=== PATIENT | male | born 1930 | race Caucasian/White ===

== ENCOUNTER 2016-06-19 14:32 | Emergency (ER) | payer MEDICARE, OTHER ==
[~2016-06-19] VITALS: Ht 180.3 cm; Wt 77.0 kg
[~2016-06-19 14:32] MED LIST: CALC-189 PO; COUM5TAB PO; DILT360C12 PO; FISH300C2 PO; FURO20 PO; METO50CR PO; POTA-267 PO
[2016-06-19 14:35] VITALS: BP 108/65; PULSE 68; RESP 18; TEMP 97.7; O2SAT 94
[2016-06-19] MEDS ORDERED: METO50TA11 PO (14:56)
[2016-06-19] MEDS ORDERED: POTA-243 PO (14:56)
[2016-06-19] MEDS ORDERED: FURO20TA PO (14:56)
[2016-06-19] MEDS ORDERED: DILT180C56 PO (14:56)
[2016-06-19] MEDS ORDERED: WARF-23 PO (14:56)
--- NOTE | 2016-06-19 15:24 | PD ---
HPI Chief Complaint: Laceration/Skin Injury Time Seen by Provider: 15:23 Travel History International Travel<30 days: No Contact w/Intl Traveler<30days: No Traveled to known affect area: No History of Present Illness HPI 86-year-old male presents to the ED via EMS for evaluation of skin tear following trip and fall. PFSH Past Medical History Hx Anticoagulant Therapy: Yes (WARFARIN) Arthritis: Yes (TOES) Atrial Fibrillation: Yes Autoimmune Disease: No Heart Rhythm Problems: Yes (A-FIB) Cancer: Yes (SKIN CANCER REMOVED ) Cardiovascular Problems: Yes (CHF) High Cholesterol: No Chemotherapy: No Chest Pain: No Congestive Heart Failure: No Cerebrovascular Accident: No Diminished Hearing: Yes ([place]) Endocrine: No Genitourinary: No Hypertension: Yes Immune Disorder: No Musculoskeletal: Yes Neurologic: Yes Psychiatric: No Reproductive: No Respiratory: No Migraines: No Radiation Therapy: No Seizures: No Tetanus Vaccination: < 5 Years Influenza Vaccination: Yes Past Surgical History Abdominal Surgery: Yes (HERNIA REPAIR) Cardiac Surgery: No Ear Surgery: No Endocrine Surgery: No Eye Surgery: No Genitourinary Surgery: Yes (PROSTATE SURGERY ) Gynecologic Surgery: No Oral Surgery: No Thoracic Surgery: No Other Surgery: Yes Social History Alcohol Use: No Tobacco Use: No Substance Use: No Allergies-Medications (Allergen,Severity, Reaction): Coded Allergies: No Known Allergies (Unverified , 06/19/16) Reported Meds & Prescriptions Reported Meds & Active Scripts Active Reported Furosemide 20 Mg Tab 20 Mg PO DAILY Metoprolol Succinate ER 24 HR (Metoprolol Succinate) 50 Mg Tab 50 Mg PO DAILY Diltiazem CD 24 HR 180 Mg Caper 180 Mg PO DAILY Klor-Con 10 (Potassium Chloride) 10 Meq Tab 10 Meq PO DAILY Warfarin 5 Mg Tab 5 Mg PO DAILY Data Data Last Documented VS Vital Signs Date Time Temp Pulse Resp B/P Pulse Ox O2 Delivery O2 Flow Rate FiO2 06/19/16 14:35 97.7 68 18 108/65 94 Adry Sauceda Jun 19, 2016 15:24
[2016-06-19 15:38] VITALS: BP 123/84; PULSE 81; RESP 18; O2SAT 94
--- NOTE | 2016-06-19 15:55 | PD ---
HPI Chief Complaint: Laceration/Skin Injury Time Seen by Provider: 15:52 Travel History International Travel<30 days: No Contact w/Intl Traveler<30days: No Traveled to known affect area: No History of Present Illness HPI 86-year-old male presents to the ED via EMS after trip and fall. PFSH Past Medical History Hx Anticoagulant Therapy: Yes (WARFARIN) Arthritis: Yes (TOES) Atrial Fibrillation: Yes Autoimmune Disease: No Heart Rhythm Problems: Yes (A-FIB) Cancer: Yes (SKIN CANCER REMOVED ) Cardiovascular Problems: Yes (CHF) High Cholesterol: No Chemotherapy: No Chest Pain: No Congestive Heart Failure: No Cerebrovascular Accident: No Diminished Hearing: Yes [place]) Endocrine: No Genitourinary: No Hypertension: Yes Immune Disorder: No Musculoskeletal: Yes Neurologic: Yes Psychiatric: No Reproductive: No Respiratory: No Migraines: No Radiation Therapy: No Seizures: No Tetanus Vaccination: < 5 Years Influenza Vaccination: Yes Past Surgical History Abdominal Surgery: Yes (HERNIA REPAIR) Cardiac Surgery: No Ear Surgery: No Endocrine Surgery: No Eye Surgery: No Genitourinary Surgery: Yes (PROSTATE SURGERY ) Gynecologic Surgery: No Oral Surgery: No Thoracic Surgery: No Other Surgery: Yes Social History Alcohol Use: No Tobacco Use: No Substance Use: No Allergies-Medications (Allergen,Severity, Reaction): Coded Allergies: No Known Allergies (Unverified , 06/19/16) Reported Meds & Prescriptions Reported Meds & Active Scripts Active Reported Furosemide 20 Mg Tab 20 Mg PO DAILY Metoprolol Succinate ER 24 HR (Metoprolol Succinate) 50 Mg Tab 50 Mg PO DAILY Diltiazem CD 24 HR 180 Mg Caper 180 Mg PO DAILY Klor-Con 10 (Potassium Chloride) 10 Meq Tab 10 Meq PO DAILY Warfarin 5 Mg Tab 5 Mg PO DAILY Review of Systems Except as stated in HPI: all other systems reviewed are Neg (UNABLE TO OBTAIN) Physical Exam Narrative UNABLE TO OBTAIN Data Data Last Documented VS Vital Signs Date Time Temp Pulse Resp B/P Pulse Ox O2 Delivery O2 Flow Rate FiO2 06/19/16 15:38 81 18 123/84 94 Room Air 06/19/16 14:35 97.7 MDM Medical Decision Making Medical Screen Exam Complete: No Emergency Medical Condition: Yes Differential Diagnosis skin tear versus closed head injury versus musculoskeletal pain versus fracture versus laceration versus other Narrative Course 86-year-old male presents to ED via EMS for evaluation following trip and fall. Upon arrival in the room, the patient had left AGAINST MEDICAL ADVICE. Diagnosis Primary Impression: AMA Patient Instructions: General Instructions Departure Forms: Tests/Procedures Disposition: 07 AGAINST MEDICAL ADVICE Adry Sauceda Jun 19, 2016 15:55
== END 2016-06-19 16:22 | disposition left against medical advice (07) ==
LOC: PHEFT 14:32
DX: T14.8 Other injury of unspecified body region (principal); I48.91 Unspecified atrial fibrillation; I50.9 Heart failure, unspecified; I10 Essential (primary) hypertension; W01.0XXA Fall on same level from slipping, tripping and stumbling without subsequent striking against object, initial encounter; Z53.21 Procedure and treatment not carried out due to patient leaving prior to being seen by health care provider
CPT/HCPCS: 99282

== ENCOUNTER 2016-07-14 15:22 | Inpatient (IN) | payer OTHER, MEDICARE ==
[~2016-07-14] VITALS: Ht 180.3 cm; Wt 76.4 kg
[2016-07-14] VITALS (12 sets, daily range): BP systolic 103–122; BP diastolic 59–79; PULSE 77–120; RESP 18–30; TEMP 98; O2SAT 85–99
[~2016-07-14 15:22] MED LIST changes: -CALC-189 PO; -COUM5TAB PO; +DILT180C56 PO; -DILT360C12 PO; -FISH300C2 PO; -FURO20 PO; +FURO20TA PO; -METO50CR PO; +METO50TA11 PO; +POTA-243 PO; -POTA-267 PO; +WARF-23 PO
--- NOTE | 2016-07-14 15:37 | PD ---
HPI Chief Complaint: GI Complaint Time Seen by Provider: 15:37 Travel History International Travel<30 days: No Contact w/Intl Traveler<30days: No Traveled to known affect area: No History of Present Illness HPI 86-year-old male with history of hypertension, A. fib on Coumadin, CHF, ascites , presents to the emergency department for evaluation of increased generalized weakness, fatigue, and worsening shortness of breath. 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 He is typically able to handle activities of daily living without difficulty but he has been unable to over the last week. Patient denies any pain. States he is short of breath. [facility] was called today because he was unable to get to the restroom and had a loose bowel movement on himself. When [facility] arrived, patient's oxygen saturation was 80%. They put him on 15 L nasal cannula and this increased to 92 %. Here in the emergency department initially oxygen saturation is 83% on 4 L nasal cannula. He has been having more frequent falls and came to the emergency department earlier this month but left prior to disposition. Patient' s children do not live locally but his daughter informs me that he has had a large ascitic abdomen since January 2016. Patient's primary care provider is aware. His daughter is also concerned because he has been on high-dose Lasix and has been having a productive cough as of late and she thinks he may have pneumonia and is dehydrated. Patient denies any recent illnesses, fever, or chills. He has no other symptoms to report. PFSH Past Medical History Hx Anticoagulant Therapy: Yes (WARFARIN) Arthritis: Yes (TOES) Atrial Fibrillation: Yes Autoimmune Disease: No Heart Rhythm Problems: Yes (A-FIB) Cancer: Yes (SKIN CANCER REMOVED ) Cardiovascular Problems: Yes (CHF) High Cholesterol: No Chemotherapy: No Chest Pain: No Congestive Heart Failure: No Cerebrovascular Accident: No Diminished Hearing: Yes ([place]) Endocrine: No Genitourinary: No Hypertension: Yes Immune Disorder: No Musculoskeletal: Yes Neurologic: Yes Psychiatric: No Reproductive: No Respiratory: No Migraines: No Radiation Therapy: No Seizures: No Past Surgical History Abdominal Surgery: Yes (HERNIA REPAIR) Cardiac Surgery: No Ear Surgery: No Endocrine Surgery: No Eye Surgery: No Genitourinary Surgery: Yes (PROSTATE SURGERY ) Gynecologic Surgery: No Oral Surgery: No Thoracic Surgery: No Other Surgery: Yes Social History Alcohol Use: No Tobacco Use: No Substance Use: No Allergies-Medications (Allergen,Severity, Reaction): Coded Allergies: No Known Allergies (Unverified , 07/14/16) Reported Meds & Prescriptions Reported Meds & Active Scripts Active Reported Metolazone 2.5 Mg Tab 2.5 PO DAILY Lasix (Furosemide) 40 Mg Tab 40 Mg .ROUTE DAILY Metoprolol Succinate ER 24 HR (Metoprolol Succinate) 50 Mg Tab 50 Mg PO DAILY Diltiazem CD 24 HR 180 Mg Caper 180 Mg PO DAILY Warfarin 5 Mg Tab 5 Mg PO DAILY Review of Systems ROS Limitations: Altered Mental Status, Poor Historian Except as stated in HPI: all other systems reviewed are Neg Physical Exam Exam Limitations: Altered Mental Status Narrative GENERAL: Chronically male patient, sitting in bed, in mild distress SKIN: Focused skin assessment warm/dry. HEAD: Atraumatic. Normocephalic. EYES: Pupils equal and round. No scleral icterus. No injection or drainage. ENT: No nasal bleeding or discharge. Mucous membranes pink and moist. NECK: Trachea midline. No JVD. CARDIOVASCULAR: Regular rate and rhythm. No murmur appreciated. RESPIRATORY: Mild accessory muscle use. Diminished, shallow inspirations. Breath sounds equal bilaterally. GASTROINTESTINAL: Abdomen soft, nontender. Rotund, ascitic abdomen hepatic and splenic margins not palpable. MUSCULOSKELETAL: No obvious deformities. No clubbing. No cyanosis. 2+ bilateral lower extremity edema NEUROLOGICAL: Awake and alert. No obvious cranial nerve deficits. Motor grossly within normal limits. Normal speech. PSYCHIATRIC: Appropriate mood and affect; insight and judgment normal. Data Data Last Documented VS Vital Signs Date Time Temp Pulse Resp B/P Pulse Ox O2 Delivery O2 Flow Rate FiO2 07/14/16 16:42 96 BiPAP 07/14/16 16:39 91 28 103/61 07/14/16 16:10 100 07/14/16 15:29 98.0 Orders Electrocardiogram (07/14/16 15:35) Complete Blood Count With Diff (07/14/16 15:35) Comprehensive Metabolic Panel (07/14/16 15:35) Lactic Acid Sepsis Protocol (07/14/16 15:35) Ckmb (Isoenzyme) Profile (07/14/16 15:35) Troponin I (07/14/16 15:35) Urinalysis - C+S If Indicated (07/14/16 15:35) Influenzae A/B Antigen (07/14/16 15:35) Blood Culture (07/14/16 15:35) Chest, Single Ap (07/14/16 15:35) Arterial Blood Gas (Abg) (07/14/16 15:35) Blood Glucose (07/14/16 15:35) Ecg Monitoring (07/14/16 15:35) Iv Access Insert/Monitor (07/14/16 15:35) Oximetry (07/14/16 15:35) Oxygen Administration (07/14/16 15:35) Abdomen, Upright Only (07/14/16 ) C Diff Toxin Pcr (07/14/16 15:37) Resp Bipap / Cpap Non Invas Vt (07/14/16 ) CKMB (07/14/16 15:40) CKMB% (07/14/16 15:40) Furosemide Inj (Lasix Inj) (07/14/16 17:30) Urinary Catheter Management WALTER.Q8H (07/14/16 17:30) Admit Order (Ed Use Only) (07/14/16 17:33) Labs Laboratory Tests Test 07/14/16 07/14/16 07/14/16 15:40 15:43 16:30 White Blood Count 5.8 TH/MM3 Red Blood Count 3.58 MIL/MM3 Hemoglobin 11.2 GM/DL Hematocrit 34.0 % Mean Corpuscular Volume 95.0 FL Mean Corpuscular Hemoglobin 31.2 PG Mean Corpuscular Hemoglobin 32.8 % Concent Red Cell Distribution Width 15.2 % Platelet Count 295 TH/MM3 Mean Platelet Volume 8.2 FL Neutrophils (%) (Auto) 60.2 % Lymphocytes (%) (Auto) 17.7 % Monocytes (%) (Auto) 21.9 % Eosinophils (%) (Auto) 0.0 % Basophils (%) (Auto) 0.2 % Neutrophils # (Auto) 3.5 TH/MM3 Lymphocytes # (Auto) 1.0 TH/MM3 Monocytes # (Auto) 1.3 TH/MM3 Eosinophils # (Auto) 0.0 TH/MM3 Basophils # (Auto) 0.0 TH/MM3 CBC Comment DIFF FINAL Differential Comment Sodium Level 140 MEQ/L Potassium Level 4.8 MEQ/L Chloride Level 97 MEQ/L Carbon Dioxide Level 36.1 MEQ/L Anion Gap 7 MEQ/L Blood Urea Nitrogen 80 MG/DL Creatinine 1.69 MG/DL Estimat Glomerular Filtration 39 ML/MIN Rate Random Glucose 137 MG/DL Lactic Acid Level 1.5 mmol/L Calcium Level 9.0 MG/DL Total Bilirubin 0.6 MG/DL Aspartate Amino Transf 38 U/L (AST/SGOT) Alanine Aminotransferase 19 U/L (ALT/SGPT) Alkaline Phosphatase 73 U/L Total Creatine Kinase 111 U/L Creatine Kinase MB 4.4 NG/ML Troponin I 0.04 NG/ML Total Protein 7.0 GM/DL Albumin 3.0 GM/DL Blood Gas Puncture Site RT RADIAL Blood Gas Patient Temperature 98.6 Blood Gas HCO3 35 mmol/L Blood Gas Base Excess 7.1 mmol/L Blood Gas Oxygen Saturation 92 % Arterial Blood pH 7.21 Arterial Blood Partial 90 mmHg Pressure CO2 Arterial Blood Partial 87 mmHG Pressure O2 Arterial Blood Oxygen Content 14.5 Vol % Arterial Blood 1.6 % Carboxyhemoglobin Arterial Blood Methemoglobin 0.5 % Blood Gas Hemoglobin 11.2 G/DL Oxygen Delivery Device NRB MASK Blood Gas Liter Flow 15 L/M Blood Gas Inspired Oxygen 100 % Urine Color YELLOW Urine Turbidity HAZY Urine pH 5.0 Urine Specific [place] 1.017 Urine Protein 30 mg/dL Urine Glucose (UA) NEG mg/dL Urine Ketones NEG mg/dL Urine Occult Blood NEG Urine Nitrite NEG Urine Bilirubin NEG Urine Urobilinogen LESS THAN 2.0 MG/DL Urine Leukocyte Esterase NEG Urine RBC 1 /hpf Urine WBC 1 /hpf Urine Squamous Epithelial <1 /hpf Cells Urine Hyaline Casts 16 /lpf Urine Mucus FEW /lpf Microscopic Urinalysis Comment CULT NOT INDICATED MDM Medical Decision Making Medical Screen Exam Complete: Yes Emergency Medical Condition: Yes Medical Record Reviewed: Yes Differential Diagnosis Sepsis versus CHF exacerbation versus obstruction versus perforation versus electrolyte abnormality Narrative Course 86-year-old male presents to emergency department for evaluation of generalized fatigue and hypoxia. Patient's ABG here in the emergency department is with pH of 7.21 and PCO2 of 9D. Base excess is 15 with a bicarbonate of 35. Placed on BiPAP. CBC is without leukocytosis. CMP is with BUN of 80, creatinine 1.69, GFR 39, troponin I 0.04. Lactic acid is 1.5. Urinalysis is hazy with 30 protein area, few mucus, culture not indicated. Chest x-ray shows moderate cardiomegaly. Upright abdomen shows no definite free air. I discussed the patient with my attending physician Dr. Germain who agrees the patient should be admitted to intensive care unit. I discussed the patient with Dr. Hardin. Patient will be admitted to the [facility] press service reader service. Diagnosis Primary Impression: Altered mental status Qualified Code: R41.82 - Altered mental status, unspecified altered mental status type Additional Impressions: Acidosis Hypoxia Uremia OLU (acute kidney injury) Admitting Information Admitting Physician Requests: Admit Condition: Stable Natalie Thomas Jul 14, 2016 15:37
[2016-07-14] MEDS ORDERED: FURO1TAB60 (15:40)
[2016-07-14] MEDS ORDERED: METO2.5T PO (15:41)
[2016-07-14 15:56] LABS: AUTOMATED NEUTROPHIL # 3.5 TH/MM3 (1.8-7.7); BASOPHIL % 0.2 % (0.0-2.0); HEMO FLAGS DIFF FINAL; LYMPH % 17.7 % (9.0-44.0); MEAN CORPUSCULAR HEMOGLOBIN 31.2 PG (27.0-34.0); MEAN CORPUSCULAR HGB CONC 32.8 % (32.0-36.0); MONO % 21.9 % (0.0-8.0); NEUT % 60.2 % (16.0-70.0); PLATELET COUNT 295 TH/MM3 (150-450); RED BLOOD COUNT 3.58 MIL/MM3 (4.50-5.90); RED CELL DISTRIBUTION WIDTH 15.2 % (11.6-17.2); WHITE BLOOD COUNT 5.8 TH/MM3 (4.0-11.0)
[2016-07-14 15:59] LABS: BLOOD GAS BASE EXCESS 7.1 mmol/L (-2-2); BLOOD GAS CARBOXYHEMOGLOBIN 1.6 % (0-4); BLOOD GAS HCO3 35 mmol/L (22-26); BLOOD GAS METHEMOGLOBIN 0.5 % (0-2); BLOOD GAS O2 HGB SATURATION 92 % (90-100); BLOOD GAS OXYGEN CONTENT 14.5 Vol % (12.0-20.0); BLOOD GAS PCO2 90 mmHg (38-42); BLOOD GAS PO2 87 mmHG (61-120); BLOOD GAS TOTAL HGB 11.2 G/DL (12.0-16.0); TEMP CORR TO 98.6
[2016-07-14 16:00] LABS: CRITICAL VALUE YES; OXYGEN DEVICE NRB MASK
[2016-07-14 16:01] LABS: DRAW SITE RT RADIAL; FIO2 100 %; LITER FLOW 15 L/M; NUMBER OF ARTERIAL PUNCTURES 1; STAT YES; ULNAR PULSE PRESENT
--- NOTE | 2016-07-14 16:13 | RADRPT ---
EXAM DATE/TIME: 07/14/2016 15:40 [facility] COMPARISON: CHEST SINGLE AP, October 11, 2011, 0:17. INDICATIONS : Shortness of breath. MEDICAL HISTORY : None. SURGICAL HISTORY : None. ENCOUNTER: Initial ACUITY: 1 day PAIN SCORE: Non-responsive. LOCATION: Bilateral chest FINDINGS: Moderate cardiomegaly seen. Lungs are clear. There are atherosclerotic calcifications of the aorta du e to chronic atherosclerotic disease. CONCLUSION: Moderate cardiomegaly. Rafa Allen MD on July 14, 2016 at 16:10 Board Certified Radiologist. This report was verified electronically.
--- NOTE | 2016-07-14 16:13 | RADRPT ---
EXAM DATE/TIME: 07/14/2016 15:42 [facility] COMPARISON: No previous studies available for comparison. INDICATIONS : Evaluate for free air. MEDICAL HISTORY : None. SURGICAL HISTORY : None. ENCOUNTER: Initial ACUITY: 1 day PAIN SCORE: Non-responsive. LOCATION: Bilateral abdomen. FINDINGS: Moderate cardiomegaly seen. No definite free air is identified for technique. CONCLUSION: No definite free air is identified for technique. Rafa Allen MD on July 14, 2016 at 16:11 Board Certified Radiologist. This report was verified electronically.
[2016-07-14 16:37] LABS: ALT (GPT) 19 U/L (12-78); ANION GAP 7 MEQ/L (5-15); AST (GOT) 38 U/L (15-37); BICARBONATE 36.1 MEQ/L (21.0-32.0); BLOOD UREA NITROGEN 80 MG/DL (7-18); CHLORIDE 97 MEQ/L (98-107); GLOMERULAR FILTRATION RATE 39 ML/MIN (>89); POTASSIUM 4.8 MEQ/L (3.5-5.1); SODIUM (NA) 140 MEQ/L (136-145)
--- NOTE | 2016-07-14 16:37 | PD ---
Data Data Last Documented VS Vital Signs Date Time Temp Pulse Resp B/P Pulse Ox O2 Delivery O2 Flow Rate FiO2 07/14/16 16:42 96 BiPAP 07/14/16 16:39 91 28 103/61 07/14/16 16:10 100 07/14/16 15:29 98.0 Orders Electrocardiogram (07/14/16 15:35) Complete Blood Count With Diff (07/14/16 15:35) Comprehensive Metabolic Panel (07/14/16 15:35) Lactic Acid Sepsis Protocol (07/14/16 15:35) Ckmb (Isoenzyme) Profile (07/14/16 15:35) Troponin I (07/14/16 15:35) Urinalysis - C+S If Indicated (07/14/16 15:35) Influenzae A/B Antigen (07/14/16 15:35) Blood Culture (07/14/16 15:35) Chest, Single Ap (07/14/16 15:35) Arterial Blood Gas (Abg) (07/14/16 15:35) Blood Glucose (07/14/16 15:35) Ecg Monitoring (07/14/16 15:35) Iv Access Insert/Monitor (07/14/16 15:35) Oximetry (07/14/16 15:35) Oxygen Administration (07/14/16 15:35) Abdomen, Upright Only (07/14/16 ) C Diff Toxin Pcr (07/14/16 15:37) Resp Bipap / Cpap Non Invas Vt (07/14/16 ) CKMB (07/14/16 15:40) CKMB% (07/14/16 15:40) Furosemide Inj (Lasix Inj) (07/14/16 17:30) Urinary Catheter Management WALTER.Q8H (07/14/16 17:30) Admit Order (Ed Use Only) (07/14/16 17:33) Labs Laboratory Tests Test 07/14/16 07/14/16 07/14/16 15:40 15:43 16:30 White Blood Count 5.8 TH/MM3 Red Blood Count 3.58 MIL/MM3 Hemoglobin 11.2 GM/DL Hematocrit 34.0 % Mean Corpuscular Volume 95.0 FL Mean Corpuscular Hemoglobin 31.2 PG Mean Corpuscular Hemoglobin 32.8 % Concent Red Cell Distribution Width 15.2 % Platelet Count 295 TH/MM3 Mean Platelet Volume 8.2 FL Neutrophils (%) (Auto) 60.2 % Lymphocytes (%) (Auto) 17.7 % Monocytes (%) (Auto) 21.9 % Eosinophils (%) (Auto) 0.0 % Basophils (%) (Auto) 0.2 % Neutrophils # (Auto) 3.5 TH/MM3 Lymphocytes # (Auto) 1.0 TH/MM3 Monocytes # (Auto) 1.3 TH/MM3 Eosinophils # (Auto) 0.0 TH/MM3 Basophils # (Auto) 0.0 TH/MM3 CBC Comment DIFF FINAL Differential Comment Sodium Level 140 MEQ/L Potassium Level 4.8 MEQ/L Chloride Level 97 MEQ/L Carbon Dioxide Level 36.1 MEQ/L Anion Gap 7 MEQ/L Blood Urea Nitrogen 80 MG/DL Creatinine 1.69 MG/DL Estimat Glomerular Filtration 39 ML/MIN Rate Random Glucose 137 MG/DL Lactic Acid Level 1.5 mmol/L Calcium Level 9.0 MG/DL Total Bilirubin 0.6 MG/DL Aspartate Amino Transf 38 U/L (AST/SGOT) Alanine Aminotransferase 19 U/L (ALT/SGPT) Alkaline Phosphatase 73 U/L Total Creatine Kinase 111 U/L Creatine Kinase MB 4.4 NG/ML Troponin I 0.04 NG/ML Total Protein 7.0 GM/DL Albumin 3.0 GM/DL Blood Gas Puncture Site RT RADIAL Blood Gas Patient Temperature 98.6 Blood Gas HCO3 35 mmol/L Blood Gas Base Excess 7.1 mmol/L Blood Gas Oxygen Saturation 92 % Arterial Blood pH 7.21 Arterial Blood Partial 90 mmHg Pressure CO2 Arterial Blood Partial 87 mmHG Pressure O2 Arterial Blood Oxygen Content 14.5 Vol % Arterial Blood 1.6 % Carboxyhemoglobin Arterial Blood Methemoglobin 0.5 % Blood Gas Hemoglobin 11.2 G/DL Oxygen Delivery Device NRB MASK Blood Gas Liter Flow 15 L/M Blood Gas Inspired Oxygen 100 % Urine Color YELLOW Urine Turbidity HAZY Urine pH 5.0 Urine Specific [place] 1.017 Urine Protein 30 mg/dL Urine Glucose (UA) NEG mg/dL Urine Ketones NEG mg/dL Urine Occult Blood NEG Urine Nitrite NEG Urine Bilirubin NEG Urine Urobilinogen LESS THAN 2.0 MG/DL Urine Leukocyte Esterase NEG Urine RBC 1 /hpf Urine WBC 1 /hpf Urine Squamous Epithelial <1 /hpf Cells Urine Hyaline Casts 16 /lpf Urine Mucus FEW /lpf Microscopic Urinalysis Comment CULT NOT INDICATED MDM Supervised Visit with [facility]: Yes Narrative Course I, Dr. Germain, have reviewed the advance practice practitioner's documentation and am in agreement, met with the patient face to face, made the diagnosis, and the medical decision making was done by me. *My assessment and Findings: Patient fairly short of breath on arrival with sats in the mid 80s, he did respond well to nonrebreather however is hypercapnic. He was started on BiPAP by BRIONNA. Chest x-ray does show cardiomegaly. Patient also does have anasarca from the lower extremities up to mid abdomen. No true pulmonary edema seen on chest x-ray. Patient also has an acute kidney injury with uremia and respiratory acidosis with some compensation. He was given Lasix and a Bernal catheter was started. He was discussed with Dr. Hardin by myself and Natalie Thomas AIRCONDITIONING DRAFTING OFFICER for admission to the ICU. Patient is tolerating the BiPAP and appears to be protecting his airway currently. Diagnosis Primary Impression: Acidosis Additional Impressions: OLU (acute kidney injury) Altered mental status Qualified Code: R41.82 - Altered mental status, unspecified altered mental status type Hypoxia Uremia Hypercapnic respiratory failure Admitting Information Admitting Physician Requests: Admit Condition: Fair Clifford Germain MD Jul 14, 2016 16:37
[2016-07-14 16:40] LABS: ALKALINE PHOSPHATASE 73 U/L (45-117); CREATINE KINASE 111 U/L (39-308); TOTAL BILIRUBIN ADULT 0.6 MG/DL (0.2-1.0)
[2016-07-14 16:58] LABS: CKMB 4.4 NG/ML (0.5-3.6)
[2016-07-14 17:00] LABS: BLOOD, URINE NEG (NEG); COMMENT (UR) CULT NOT INDICATED; CULTURE IF INDICATED CULT NOT INDICATED; GLUCOSE,URINE NEG (NEG); HYALINE CAST, URINE 16 /lpf (RARE); KETONE, URINE NEG (NEG); MUCUS URINE FEW /lpf (OCC); NITRITE,URINE NEG (NEG); SQUAMOUS EPITHELIAL CELL URINE <1 /hpf (0-5); URINE COLOR YELLOW (YELLW/STRAW)
[2016-07-14] MEDS ORDERED: FUROSEMIDE 40 MG/4 ML VIAL IV PUSH ONE (17:30)
[2016-07-14 20:09] LABS: BLOOD GAS BASE EXCESS 6.3 mmol/L (-2-2); BLOOD GAS CARBOXYHEMOGLOBIN 1.2 % (0-4); BLOOD GAS HCO3 34 mmol/L (22-26); BLOOD GAS METHEMOGLOBIN 0.1 % (0-2); BLOOD GAS O2 HGB SATURATION 95 % (90-100); BLOOD GAS OXYGEN CONTENT 15.7 Vol % (12.0-20.0); BLOOD GAS PCO2 90 mmHg (38-42); BLOOD GAS PO2 96 mmHG (61-120); BLOOD GAS TOTAL HGB 11.7 G/DL (12.0-16.0); TEMP CORR TO 98.6
[2016-07-14 20:10] LABS: CRITICAL VALUE YES; DRAW SITE RT FEMORAL; FIO2 75 %; NUMBER OF ARTERIAL PUNCTURES 1; OXYGEN DEVICE BIPAP; STAT YES; VENT SETTINGS IPAP=15 EPAP=8 R=18
[2016-07-15] VITALS (18 sets, daily range): BP systolic 92–124; BP diastolic 53–70; PULSE 89–149; RESP 20–32; TEMP 98–98.6; O2SAT 88–97
[2016-07-15] MEDS: CHLORHEXIDINE GLUCONATE 2 % 1 PACK (2 CLOTHS) TOP SCH
[2016-07-15] MEDS ORDERED: RESP: ALBUTEROL 2.5 MG/IPRATROPIUM 0.5 MG NEB (PRN) INH (01:00)
[2016-07-15] MEDS ORDERED: SENNOSIDES 8.6 MG TAB PO PRN (01:00)
[2016-07-15] MEDS ORDERED: MISCELLANEOUS NURSING INFORMATION XX SCH (01:00)
[2016-07-15] MEDS ORDERED: CHLORHEXIDINE GLUCONATE 2 % 1 PACK (2 CLOTHS) TOP PRN (01:00)
[2016-07-15] MEDS ORDERED: HEPARIN SODIUM - SQ 10,000 UNITS/ML VIAL SQ SCH (01:00)
[2016-07-15] MEDS ORDERED: ONDANSETRON HCL 4 MG/2 ML VIAL IV PRN (01:00)
[2016-07-15] MEDS ORDERED: ACETAMINOPHEN 325 MG TAB PO PRN (01:00)
--- NOTE | 2016-07-15 01:05 | HHI.HP ---
[facility] Service Date of H&P 07/14/2016 Critical Care Medicine Primary Care Physician Nithin Mckeon MD Admission Diagnosis AMS; HYPOXIA; HYPERCARBIA; OLU; UREMIA; ACIDOSIS Diagnosis: Chief Complaint: Respiratory Distress Travel History International Travel<30 Days: No Contact w/Intl Traveler <30 Da: No Traveled to Known Affected Are: No History of Present Illness Patient presents to ED with gradual worsening of exercise tolerance and frequent falls. Brought in by EMS after he got confused, soiled himself, and appeared disoriented. Sats low 80s at scene and in ED. Placed on BiPAOP in ED with improvement. Chronic COPD with elevated bicarb 34. 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 He is chronically on lasix and metolazone. Permanent A-fib and coumadin. Past Family Social History Allergies: Coded Allergies: No Known Allergies (Unverified , 07/14/16) Physical Exam Vital Signs Vital Signs Date Time Temp Pulse Resp B/P Pulse Ox O2 Delivery O2 Flow Rate FiO2 07/15/16 00:00 90 15.00 07/14/16 23:57 93 65 07/14/16 23:27 89 18 104/61 91 07/14/16 22:35 91 65 07/14/16 21:59 77 30 110/60 94 BiPAP 65 07/14/16 20:37 95 18 106/66 93 BiPAP 07/14/16 19:47 120 30 122/66 75 07/14/16 19:20 96 75 07/14/16 18:09 109 24 120/79 99 BiPAP 07/14/16 16:42 96 BiPAP 07/14/16 16:39 91 28 103/61 96 BiPAP 07/14/16 16:10 97 BiPAP 100 07/14/16 16:10 97 100 07/14/16 15:45 32 07/14/16 15:30 96 BiPAP 07/14/16 15:29 98.0 95 30 115/59 85 Physical Exam Gen: Exhausted. Lungs: Clear, No wheezes or crackles. Heart: Irreg Irreg, no JVD. Abdomen: Soft, NT, ND, quiet. Extremities: Warm, lowers wrinkled. Neuro: Conversant. Moves 4 limbs spontaneously. Laboratory Laboratory Tests Test 07/14/16 07/14/16 07/14/16 07/14/16 15:40 15:43 16:30 19:40 White Blood Count 5.8 Red Blood Count 3.58 Hemoglobin 11.2 Hematocrit 34.0 Mean Corpuscular Volume 95.0 Mean Corpuscular Hemoglobin 31.2 Mean Corpuscular Hemoglobin 32.8 Concent Red Cell Distribution Width 15.2 Platelet Count 295 Mean Platelet Volume 8.2 Neutrophils (%) (Auto) 60.2 Lymphocytes (%) (Auto) 17.7 Monocytes (%) (Auto) 21.9 Eosinophils (%) (Auto) 0.0 Basophils (%) (Auto) 0.2 Neutrophils # (Auto) 3.5 Lymphocytes # (Auto) 1.0 Monocytes # (Auto) 1.3 Eosinophils # (Auto) 0.0 Basophils # (Auto) 0.0 CBC Comment DIFF FINAL Differential Comment Sodium Level 140 Potassium Level 4.8 Chloride Level 97 Carbon Dioxide Level 36.1 Anion Gap 7 Blood Urea Nitrogen 80 Creatinine 1.69 Estimat Glomerular Filtration 39 Rate Random Glucose 137 Lactic Acid Level 1.5 Calcium Level 9.0 Total Bilirubin 0.6 Aspartate Amino Transf 38 (AST/SGOT) Alanine Aminotransferase 19 (ALT/SGPT) Alkaline Phosphatase 73 Total Creatine Kinase 111 Creatine Kinase MB 4.4 Troponin I 0.04 Total Protein 7.0 Albumin 3.0 Blood Gas Puncture Site RT RADIAL RT FEMORAL Blood Gas Patient Temperature 98.6 98.6 Blood Gas HCO3 35 34 Blood Gas Base Excess 7.1 6.3 Blood Gas Oxygen Saturation 92 95 Arterial Blood pH 7.21 7.20 Arterial Blood Partial 90 90 Pressure CO2 Arterial Blood Partial 87 96 Pressure O2 Arterial Blood Oxygen Content 14.5 15.7 Arterial Blood 1.6 1.2 Carboxyhemoglobin Arterial Blood Methemoglobin 0.5 0.1 Blood Gas Hemoglobin 11.2 11.7 Oxygen Delivery Device NRB MASK BIPAP Blood Gas Liter Flow 15 Blood Gas Inspired Oxygen 100 75 Urine Color YELLOW Urine Turbidity HAZY Urine pH 5.0 Urine Specific Humphrey 1.017 Urine Protein 30 Urine Glucose (UA) NEG Urine Ketones NEG Urine Occult Blood NEG Urine Nitrite NEG Urine Bilirubin NEG Urine Urobilinogen LESS THAN 2.0 Urine Leukocyte Esterase NEG Urine RBC 1 Urine WBC 1 Urine Squamous Epithelial <1 Cells Urine Hyaline Casts 16 Urine Mucus FEW Microscopic Urinalysis Comment CULT NOT INDICATED Blood Gas Ventilator Setting IPAP=15 EPAP=8 R=18 Date/Time Procedure Status Source Growth 07/14/16 19:25 Influenza Types A,B Antigen (MALENA) - Final Complete Nasal Washing NEGATIVE FOR FLU A AND B ANTIGEN.... 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 2. Prerenal azotemia. 3. COPD, not exacerbated. Plan: 1. Gentle hydration. 2. Hold metolazone. 3. BiPAP. 4. Heart rate control. Overall impression: Critically ill with overdiuresis and poor cardiac output. Will gently hydrate and hopefully improve blood flow through lungs. Too end- stage to benefit from pulmonary artery dilation, inhaled or oral. I suspect he will develop peripheral edema with hydration but maybe we can get him off BiPAP. Critical care 42 mins Cristofer Perez MD Jul 15, 2016 01:05
[2016-07-15] MEDS: SODIUM CHLOR 0.9% 1000 ML INJ 1,000 ML IV SCH ×4 (03:31→17:58)
[2016-07-15 04:27] LABS: PROTHROMBIN TIME - PATIENT 76.9 SEC (9.8-11.6)
[2016-07-15 04:35] LABS: MAGNESIUM 2.8 MG/DL (1.5-2.5); POTASSIUM 4.9 MEQ/L (3.5-5.1)
[2016-07-15 04:38] LABS: INTERNATIONAL NORMALIZED RATIO 6.4 RATIO
[2016-07-15 06:23] LABS: BLOOD GAS BASE EXCESS 10.5 mmol/L (-2-2); BLOOD GAS CARBOXYHEMOGLOBIN 1.9 % (0-4); BLOOD GAS HCO3 36 mmol/L (22-26); BLOOD GAS METHEMOGLOBIN 0.9 % (0-2); BLOOD GAS O2 HGB SATURATION 92 % (90-100); BLOOD GAS OXYGEN CONTENT 13.3 Vol % (12.0-20.0); BLOOD GAS PCO2 67 mmHg (38-42); BLOOD GAS PO2 77 mmHg (61-120); BLOOD GAS TOTAL HGB 10.2 G/DL (12.0-16.0); TEMP CORR TO 98.6
[2016-07-15 06:24] LABS: CRITICAL VALUE YES; OXYGEN DEVICE BiPAP
[2016-07-15 06:26] LABS: DRAW SITE LT BRACHIAL; FIO2 100 %; NUMBER OF ARTERIAL PUNCTURES 1; STAT NO; ULNAR PULSE PRESENT; VENT SETTINGS 17IPAP/8EPAP
[2016-07-15] MEDS ORDERED: METOLAZONE 2.5 MG TAB PO SCH (09:00)
[2016-07-15] MEDS ORDERED: WARFARIN SOD 5 MG TAB PO SCH (09:00)
[2016-07-15] MEDS ORDERED: FUROSEMIDE 40 MG TAB PO SCH (09:00)
[2016-07-15] MEDS: METOPROLOL SUCCINATE 50 MG EXTENDED RELEASE TAB PO SCH (09:00)
[2016-07-15] MEDS: DILTIAZEM-CD 180 MG CAP ER PO SCH (09:00)
[2016-07-15] MEDS: DOCUSATE SODIUM 100 MG CAP PO SCH ×2 (11:13→21:00)
[2016-07-15] MEDS: PANTOPRAZOLE SOD 40 MG DELAYED RELEASE TAB PO SCH (11:13)
[2016-07-15] MEDS ORDERED: DIGOXIN 0.5 MG/2 ML VIAL IV PUSH ONE (13:00)
[2016-07-15] MEDS ORDERED: METOPROLOL TARTRATE 5 MG/5 ML VIAL IV PUSH ONE (15:45)
--- NOTE | 2016-07-15 22:46 | EKG ---
Date Performed: 07/14/2016 Time Performed: 15:37:54 PTAGE: 86 years EKG: ATRIAL FIBRILLATION MARKED LEFT AXIS DEVIATION RIGHT BUNDLE BRANCH BLOCK ABNORMAL ECG PREVIOUS TRACING : 10/11/2011 00.39 Compared to prior tracing no significant change DOCTOR: Gonzalez Dale Interpretating Date/Time 07/15/2016 22:45:10
[2016-07-16] VITALS (17 sets, daily range): BP systolic 97–127; BP diastolic 52–76; PULSE 91–141; RESP 16–43; TEMP 97.5–98.8; O2SAT 83–100
[2016-07-16 05:25] LABS: BLOOD GAS CARBOXYHEMOGLOBIN 1.6 % (0-4); BLOOD GAS HCO3 36 mmol/L (22-26); BLOOD GAS METHEMOGLOBIN 0.8 % (0-2); BLOOD GAS O2 HGB SATURATION 95 % (90-100); BLOOD GAS OXYGEN CONTENT 13.6 Vol % (12.0-20.0); BLOOD GAS PCO2 76 mmHg (38-42); BLOOD GAS PO2 102 mmHg (61-120); BLOOD GAS TOTAL HGB 10.1 G/DL (12.0-16.0); TEMP CORR TO 98.6
[2016-07-16 05:26] LABS: CRITICAL VALUE YES; DRAW SITE RT RADIAL; FIO2 80 %; NUMBER OF ARTERIAL PUNCTURES 1; OXYGEN DEVICE BiPAP; STAT NO; ULNAR PULSE PRESENT; VENT SETTINGS IPAP15/ EPAP6
[2016-07-16 06:41] LABS: BICARBONATE 38.4 MEQ/L (21.0-32.0); POTASSIUM 3.7 MEQ/L (3.5-5.1)
[2016-07-16] MEDS: METOPROLOL SUCCINATE 50 MG EXTENDED RELEASE TAB PO SCH (08:28)
[2016-07-16] MEDS: DOCUSATE SODIUM 100 MG CAP PO SCH ×2 (08:28→20:36)
[2016-07-16] MEDS: PANTOPRAZOLE SOD 40 MG DELAYED RELEASE TAB PO SCH (08:28)
[2016-07-16] MEDS: FUROSEMIDE 40 MG TAB PO SCH (08:29)
[2016-07-16] MEDS: DILTIAZEM-CD 180 MG CAP ER PO SCH (08:30)
[2016-07-16] MEDS ORDERED: SODIUM CHLOR 0.9% 1000 ML INJ 1,000 ML IV SCH (09:30)
--- NOTE | 2016-07-16 10:06 | HHI.CCPN ---
Subjective Remarks/Hospital Course 07/15: Patient presents to ED with gradual worsening of exercise tolerance and frequent falls. Brought in by EMS after he got confused, soiled himself, and appeared disoriented. Sats low 80s at scene and in ED. Placed on BiPAOP in ED with improvement. Chronic COPD with elevated bicarb 34. 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 He is chronically on lasix and metolazone. Permanent A-fib and coumadin. 07/16 : Was on BiPAP overnight. Placed on nonrebreather facemask this morning. He is awake and alert and conversant. He is worried about his was dementia since she takes care of her at home. He tells me that his daughter is taking care of her currently. Patient states that he follows up with Dr. Lopez from cardiology for his heart. Received 1 dose of Lopressor IV and digoxin 0.5 mg IV 1 dose yesterday for A. fib with RVR. Currently appears rate controlled. Objective Vital Signs Date Time Temp Pulse Resp B/P Pulse Ox O2 Delivery O2 Flow Rate FiO2 07/16/16 08:53 95 Non-Rebreather 15.00 100 07/16/16 06:00 111 07/16/16 04:00 98.0 16 110/57 Intake and Output 07/15/16 07/15/16 07/16/16 08:00 16:00 00:00 Intake Total 636 ml 1474 ml 20 ml Output Total 1425 ml 600 ml 350 ml Balance -789 ml 874 ml -330 ml Result Diagram: 07/14/16 1540 07/16/16 0417 Other Results Microbiology Date/Time Procedure Status Source Growth 07/14/16 19:25 Influenza Types A,B Antigen (MALENA) - Final Complete Nasal Washing NEGATIVE FOR FLU A AND B ANTIGEN.... Laboratory Tests Test 07/16/16 05:09 Blood Gas Puncture Site RT RADIAL Blood Gas Patient Temperature 98.6 Blood Gas HCO3 36 mmol/L (22-26) Blood Gas Base Excess 9.0 mmol/L (-2-2) Blood Gas Oxygen Saturation 95 % (90-100) Arterial Blood pH 7.29 (7.380-7.420) Arterial Blood Partial 76 mmHg (38-42) Pressure CO2 Arterial Blood Partial 102 mmHg Pressure O2 (61-120) Arterial Blood Oxygen Content 13.6 Vol % (12.0-20.0) Arterial Blood 1.6 % (0-4) Carboxyhemoglobin Arterial Blood Methemoglobin 0.8 % (0-2) Blood Gas Hemoglobin 10.1 G/DL (12.0-16.0) Oxygen Delivery Device BiPAP Blood Gas Ventilator Setting IPAP15/ EPAP6 Blood Gas Inspired Oxygen 80 % Imaging Last Impressions Chest X-Ray 07/14/16 1535 Signed Impressions: Service Date/Time: Thursday, July 14, 2016 15:40 - CONCLUSION: Moderate cardiomegaly. Rafa Allen MD Abdomen X-Ray 07/14/16 0000 Signed Impressions: Service Date/Time: Thursday, July 14, 2016 15:42 - CONCLUSION: No definite free air is identified for technique. Rafa Allen MD Objective Remarks Gen: Elderly male sitting up in bed on nonrebreather facemask HEENT: Positive pallor, no icterus, tongue moist Lungs: Good air entry bilaterally, scattered rhonchi, no wheezing Heart: Irreg Irreg, no JVD. Abdomen: Soft, NT, ND, quiet. Extremities: Warm, lowers wrinkled. Neuro: Conversant. Moves 4 limbs spontaneously. Urinary Catheter: Yes Assessment to: Continue A/P Assessment and Plan Assessment: 1. RV failure with severe tricuspid regurgitation. 2. Prerenal azotemia. 3. COPD Plan: 1. Gentle hydration. 2. Hold metolazone. 3. BiPAP prn, supplemental O2. 4. Heart rate control. Consulted Dr. Taylor. Holding Coumadin in view of elevated INR. Follow INR and restart Coumadin once INR is below 3.5 5. Bronchodilators, will initiate Solu-Medrol 40 mg IV every 12 hourly to see if there is any improvement in respiratory status in view of CO2 retention. Overall impression: Critically ill with overdiuresis and poor cardiac output. Will gently hydrate and hopefully improve blood flow through lungs. Too end- stage to benefit from pulmonary artery dilation, inhaled or oral. I suspect he will develop peripheral edema with hydration but maybe we can get him off BiPAP. Critical care 30 mins Srinivasan Reyes MD July 16, 2016 10:06
--- NOTE | 2016-07-16 10:21 | RADRPT ---
EXAM DATE/TIME: 07/16/2016 09:37 [facility] COMPARISON: CHEST SINGLE AP, July 14, 2016, 15:40. INDICATIONS : Shortness of breath. MEDICAL HISTORY : Congestive heart failure. A-fib. SURGICAL HISTORY : None. ENCOUNTER: Subsequent ACUITY: 3 days PAIN SCORE: 0/10 LOCATION: Bilateral chest FINDINGS: Bibasilar pleuroparenchymal opacities are present. Cardiomegaly is fairly stable. CONCLUSION: Developing CHF Waldo Mitchell MD on July 16, 2016 at 10:18 Board Certified Radiologist. This report was verified electronically.
[2016-07-16] MEDS: methylPREDNISolone SOD SUCC 40 MG/1 ML VIAL IV PUSH SCH ×2 (10:44→20:36)
[2016-07-16 12:14] LABS: BLOOD GAS BASE EXCESS 8.3 mmol/L (-2-2); BLOOD GAS CARBOXYHEMOGLOBIN 1.6 % (0-4); BLOOD GAS HCO3 35 mmol/L (22-26); BLOOD GAS O2 HGB SATURATION 90 % (90-100); BLOOD GAS OXYGEN CONTENT 13.6 Vol % (12.0-20.0); BLOOD GAS PCO2 82 mmHg (38-42); BLOOD GAS PO2 75 mmHg (61-120); BLOOD GAS TOTAL HGB 10.7 G/DL (12.0-16.0); TEMP CORR TO 98.6
[2016-07-16 12:15] LABS: CRITICAL VALUE YES; DRAW SITE LT RADIAL; NUMBER OF ARTERIAL PUNCTURES 1; OXYGEN DEVICE PRB MASK; STAT NO; ULNAR PULSE Y
[2016-07-16] MEDS: TOBRAMYCIN SULF 0.3% OPHT SOLN 5 ML BTL EACH EYE SCH ×2 (12:41→18:24)
[2016-07-16 13:04] LABS: AUTOMATED NEUTROPHIL # 9.3 TH/MM3 (1.8-7.7); BASOPHIL % 0.1 % (0.0-2.0); HEMATOCRIT 33.7 % (39.0-51.0); HEMO FLAGS DIFF FINAL; LYMPH % 6.4 % (9.0-44.0); LYMPHOCYTE # 0.7 TH/MM3 (1.0-4.8); MEAN CELL VOLUME 96.5 FL (80.0-100.0); MEAN CORPUSCULAR HGB CONC 32.2 % (32.0-36.0); MONO % 5.8 % (0.0-8.0); NEUT % 87.7 % (16.0-70.0); PLATELET COUNT 249 TH/MM3 (150-450); RED BLOOD COUNT 3.49 MIL/MM3 (4.50-5.90); RED CELL DISTRIBUTION WIDTH 15.6 % (11.6-17.2); WHITE BLOOD COUNT 10.6 TH/MM3 (4.0-11.0)
[2016-07-16 13:16] LABS: PROTHROMBIN TIME - PATIENT 106.4 SEC (9.8-11.6)
[2016-07-16 13:21] LABS: INTERNATIONAL NORMALIZED RATIO 8.8 RATIO
[2016-07-16] MEDS ORDERED: HALOPERIDOL LACTATE 5 MG/ML AMP IV PUSH PRN (15:15)
[2016-07-16] MEDS ORDERED: DEXMEDETOMIDINE HCL 200 MCG/2 ML VIAL ONE (15:23)
[2016-07-16] MEDS: DEXMEDETOMIDINE INJ 200 MCG in SODIUM CHLORIDE 0.9% INJ 50 ML IV SCH ×2 (15:41→18:24)
[2016-07-16] MEDS ORDERED: PHYTONADIONE INJ 10 MG in SODIUM CHLORIDE 0.9% INJ 50 ML IV ONE (16:00)
[2016-07-16] MEDS ORDERED: HYOSCYAMINE 0.125 MG TAB PO PRN (17:00)
[2016-07-16] MEDS ORDERED: LORazepam 2 MG/ML VIAL IV PUSH PRN (17:00)
[2016-07-16] MEDS ORDERED: MORPHINE SULFATE 4 MG/ML INJ IV PUSH PRN (17:00)
--- NOTE | 2016-07-16 17:35 | PD.CONS ---
Consult Service Palliative Care Consult Requested By Dr. Reyes . Primary Care Physician Nithin Mckeon MD . Reason for Consultation a. To assist with evaluation and management of symptoms including: Shortness of breath b. To assist medical decision maker(s) with: better understanding of current medical conditions; weighing benefits/burdens of medical treatment options; making medical treatment decisions. . HPI History of Present Illness This 86-year-old male, with a past history of atrial fibrillation on Coumadin, hypertension, pulmonary hypertension, and right heart failure, presented to the emergency department on 07/14/16 because of worsening weakness and worsening shortness of breath over the past couple days. When paramedics arrived, his oxygen saturation was 80%. He told them he also been having several falls recently as he became weaker. He was not having chest pain. Over the past few months, he has had worsening ascites without abdominal pain. In the emergency department, findings included: * Moderate dyspnea * O2 saturation 80% in the field, 96% on BiPAP in the emergency department * Temp 98.0, pulse 91 and irregular, respirations 28, blood pressure 103/61 * White count 5.8, hemoglobin 11.2 * Sodium 140, creatinine 1.69, albumin 3.0 * Chest x-ray revealed cardiomegaly * An echocardiogram from last year revealed pulmonary hypertension with right ventricular dilatation The patient was admitted and treated with diuresis. He continued to have worsening hypercapnia, and BiPAP was placed on him a couple times. He tried to pull the BiPAP mask off, and today is saying that he does not want it put back on. Earlier discussions had the patient indicating that he did not want to be resuscitated. Palliative Care was consulted to assist with symptom management, and to entered into discussions with the patient and family regarding his illnesses, the prognosis, and the benefits and burdens of the various treatment options. . Function/Cognitive Trajectory The patient has been the primary caregiver for his who has dementia. Over the past several months, the patient has lost weight, become weaker, had more falls, and more shortness of breath, but he is still been managing his own ADLs. . Review of Systems Constitutional: COMPLAINS OF: Fatigue, Weight loss Endocrine: DENIES: Polyuria Eyes: DENIES: Eye pain Ears, nose, mouth, throat: DENIES: Epistaxis Respiratory: COMPLAINS OF: Cough, Shortness of breath Cardiovascular: COMPLAINS OF: Dyspnea on Exertion, Lower Extremity Edema, Orthopnea, DENIES: Chest pain, Syncope Gastrointestinal: DENIES: Constipation, Diarrhea, Vomiting Genitourinary: DENIES: Hematuria Musculoskeletal: DENIES: Joint Swelling Integumentary: DENIES: Rash Hematologic/Lymphatics: COMPLAINS OF: Bruising Immunologic/Allergic: DENIES: Urticaria Neurologic: DENIES: Localized weakness, Paresthesias, Seizures Psychiatric: COMPLAINS OF: Confusion (earlier this admission when more hypercapnic), DENIES: Hallucinations, Agitation, Suicidal Ideation Past Family Social History Coded Allergies: No Known Allergies (Unverified , 07/14/16) Past Medical History * Respiratory failure, hypercapnia * Pulmonary hypertension, suspected interstitial lung disease * Right ventricular failure * Tricuspid regurgitation * Atrial fibrillation with RVR, on Coumadin * Ascites, worsening since January 2016 * Hypertension * History of skin cancers * Hearing loss * Degenerative joint disease . Past Surgical History * Herniorrhaphy * Prostate surgery . Reported Medications Metolazone 2.5 Mg Tab 2.5 PO DAILY Lasix (Furosemide) 40 Mg Tab 40 Mg .ROUTE DAILY Metoprolol Succinate ER 24 HR (Metoprolol Succinate) 50 Mg Tab 50 Mg PO DAILY Diltiazem CD 24 HR 180 Mg Caper 180 Mg PO DAILY Warfarin 5 Mg Tab 5 Mg PO DAILY . Current Medications Medications (Trade) Dose Ordered Sig/Efe Route Start Time Stop Time Status Last Admin (Cardizem Cd) 180 mg DAILY PO 07/15/16 09:00 07/16/16 08:30 (Toprol Xl) 50 mg DAILY PO 07/15/16 09:00 07/16/16 08:28 (Coumadin) 5 mg DAILY PO 07/15/16 09:00 Hold (Tylenol) 650 mg Q6H PRN PO 07/15/16 01:00 (Protonix) 40 mg DAILY PO 07/15/16 09:00 07/16/16 08:28 (Zofran Inj) 4 mg Q6H PRN IV 07/15/16 01:00 (Colace) 100 mg BID PO 07/15/16 09:00 07/16/16 08:28 (Senokot) 17.2 mg Q12H PRN PO 07/15/16 01:00 Miscellaneous Information 1 [id number] XX 07/15/16 01:00 (Chlorhexidine 2% Cloth) 3 pack Taper DAILY@04 TOP 07/15/16 04:00 07/11/17 03:59 07/15/16 00:00 (Chlorhexidine 2% Cloth) 3 pack UNSCH PRN TOP 07/15/16 01:00 Furosemide 40 mg 40 mg DAILY PO 07/16/16 09:00 07/16/16 08:29 (NS 1000 ml Inj) 1,000 ml @ 42 mls/hr [id number] IV 07/16/16 09:30 07/16/16 18:00 07/16/16 09:45 (SoluMEDROL INJ) 40 mg Q12HR IV PUSH 07/16/16 10:15 07/16/16 10:44 Tobramycin Sulfate 1 drop 1 drop Q6HR EACH EYE 07/16/16 12:00 07/21/16 11:59 07/16/16 12:41 (Precedex Inj/NS Inj) 52 ml @ 0 mls/hr TITRATE IV 07/16/16 15:15 07/16/16 15:41 (Haldol Inj) 2 mg Q6H PRN IV PUSH 07/16/16 15:15 (Morphine Inj) 2 mg Q30M PRN IV PUSH 07/16/16 17:00 UNV (Morphine Inj) 3 mg Q30M PRN IV PUSH 07/16/16 17:00 UNV (Ativan Inj) 0.5 mg Q1H PRN IV PUSH 07/16/16 17:00 UNV (Levsin) 0.125 mg Q4H PRN PO 07/16/16 17:00 UNV Family History Positive for heart disease . Substance Use Tobacco: Smoked for a few years, but quit nearly 50 years ago Alcohol: None. Prescription med abuse: None. Illicits: None. . Psychosocial History The patient is originally from [place], and his lived here for the past few years. 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 The patient is . He has 4 daughters. . Spiritual/Cultural Factors Spirituality is very important for the patient, and he is an active member of the [facility] [employer]. The clergy from there has been notified and is reportedly coming to see the patient. . Living Will: Completed, but not made available Health Care Surrogate: Completed, but not made available Durable Power of Prep Manager: Completed, but not made available Health Care Surrogate(s): Daughter Dorcas Samaniego . Documented care wishes: The patient has a living will that confirms that he will not want to have his life prolonging when he has an end-stage or terminal condition. . Today's verbally stated goals: The patient confirms to me that he does not want to be resuscitated or intubated , and specifically says he does not want the BiPAP mask back on even if it means he will sooner. He wants comfort measures. . Family/friends goals: The patient's daughter Dorcas, who is a nurse working with hospice in [place], also reiterates the patient's previously expressed wishes for comfort when he has an end-stage or terminal condition, and she requests hospice consultation at this time. . Ethical and Legal Issues There are no ethical issues that would impact his care or decision-making at this time At the time I'm present on 07/16/16, the patient has capacity for decision-making , but that has been intermittent throughout the day today, depending on how hypercapnic he is. His daughter Dorcas is the designated health care surrogate. . Physical Exam Vital Signs Date Time Temp Pulse Resp B/P Pulse Ox O2 Delivery O2 Flow Rate FiO2 07/16/16 16:00 98.8 141 43 127/60 83 07/16/16 12:00 98.8 127 28 99/69 90 07/16/16 08:53 95 Non-Rebreather 15.00 100 07/16/16 08:00 98.7 108 28 105/76 98 07/16/16 06:00 111 07/16/16 06:00 Bi-Pap 80 07/16/16 04:04 99 80 07/16/16 04:00 100 Bi-Pap 80 07/16/16 04:00 111 07/16/16 04:00 98.0 111 16 110/57 100 07/16/16 02:00 98 07/16/16 01:20 100 Bi-Pap 90 07/16/16 01:16 98 90 07/16/16 00:00 97.5 91 28 97/55 86 07/16/16 00:00 86 Bi-Pap 100 07/16/16 00:00 91 07/15/16 22:50 98 Bi-Pap 80 07/15/16 22:20 87 Bi-Pap 100 07/15/16 22:00 94 07/15/16 21:42 95 80 07/15/16 21:00 Bi-Pap 80 07/15/16 20:30 Non-Rebreather 07/15/16 20:00 98.2 90 20 92/61 95 07/15/16 20:00 90 07/15/16 20:00 95 Bi-Pap 15.00 80 07/15/16 18:00 89 07/15/16 07/16/16 19:00 07:00 Intake Total 1474 ml 50 ml Output Total 600 ml 825 ml Balance 874 ml -775 ml Intake Oral 100 ml 50 ml IV Total 1374 ml 0 ml Output Urine Total 600 ml 825 ml # Bowel Movements 0 Exam CONSTITUTIONAL/GENERAL: This is a frail, somewhat cachectic patient, in no apparent distress. TUBES/LINES/DRAINS: Nonrebreather, Bernal, IVs SKIN: No jaundice, rashes, or lesions. Ecchymoses on upper extremities. No wounds seen anteriorly. Skin temperature appropriate. Not diaphoretic. HEAD: Atraumatic. Normocephalic. EYES: Pupils equal and round and reactive. Extraocular motions intact. No scleral icterus. No injection or drainage. Fundi not examined. ENT: Hearing mildly diminished. Nose without bleeding or purulent drainage. Throat without visible erythema, exudates, masses, or lesions. NECK: Trachea midline. Supple, nontender. No palpable thyroid enlargement or nodularity. CARDIOVASCULAR: Irregular rhythm. At 45 in his bed, he has marked JVD. Pulses not palpable in the ankles/feet. RESPIRATORY/CHEST: Symmetric, mildly labored respirations. Scattered rales and rhonchi GASTROINTESTINAL: Abdomen soft, non-tender, but moderately distended with ascites. No hepato-splenomegaly, or palpable masses. No guarding. Bowel sounds present. GENITOURINARY: Without palpable bladder distension. Bernal catheter in place. MUSCULOSKELETAL: Extremities without clubbing, cyanosis, or edema. No joint tenderness or effusion noted. No calf tenderness. No mottling or clubbing. LYMPHATICS: No palpable cervical or supraclavicular adenopathy. NEUROLOGICAL: Awake and alert. Quite weak, but is aware of his location, people , names, dates, and seems to have an understanding of his disease process and prognosis. Follows commands.. PSYCHIATRIC: No obvious anxiety/depression. no apparent hallucinations or other psychotic thought process. . Diagnostic Tests Laboratory Laboratory Tests Test 07/14/16 07/14/16 07/14/16 07/14/16 15:40 15:43 16:30 19:40 White Blood Count 5.8 TH/MM3 (4.0-11.0) Red Blood Count 3.58 MIL/MM3 (4.50-5.90) Hemoglobin 11.2 GM/DL (13.0-17.0) Hematocrit 34.0 % (39.0-51.0) Mean Corpuscular Volume 95.0 FL (80.0-100.0) Mean Corpuscular Hemoglobin 31.2 PG (27.0-34.0) Mean Corpuscular Hemoglobin 32.8 % Concent (32.0-36.0) Red Cell Distribution Width 15.2 % (11.6-17.2) Platelet Count 295 TH/MM3 (150-450) Mean Platelet Volume 8.2 FL (7.0-11.0) Neutrophils (%) (Auto) 60.2 % (16.0-70.0) Lymphocytes (%) (Auto) 17.7 % (9.0-44.0) Monocytes (%) (Auto) 21.9 % (0.0-8.0) Eosinophils (%) (Auto) 0.0 % (0.0-4.0) Basophils (%) (Auto) 0.2 % (0.0-2.0) Neutrophils # (Auto) 3.5 TH/MM3 (1.8-7.7) Lymphocytes # (Auto) 1.0 TH/MM3 (1.0-4.8) Monocytes # (Auto) 1.3 TH/MM3 (0-0.9) Eosinophils # (Auto) 0.0 TH/MM3 (0-0.4) Basophils # (Auto) 0.0 TH/MM3 (0-0.2) CBC Comment DIFF FINAL Differential Comment Sodium Level 140 MEQ/L (136-145) Potassium Level 4.8 MEQ/L (3.5-5.1) Chloride Level 97 MEQ/L (98-107) Carbon Dioxide Level 36.1 MEQ/L (21.0-32.0) Anion Gap 7 MEQ/L (5-15) Blood Urea Nitrogen 80 MG/DL (7-18) Creatinine 1.69 MG/DL (0.60-1.30) Estimat Glomerular Filtration 39 ML/MIN (>89) Rate Random Glucose 137 MG/DL (74-106) Lactic Acid Level 1.5 mmol/L (0.4-2.0) Calcium Level 9.0 MG/DL (8.5-10.1) Total Bilirubin 0.6 MG/DL (0.2-1.0) Aspartate Amino Transf 38 U/L (15-37) (AST/SGOT) Alanine Aminotransferase 19 U/L (12-78) (ALT/SGPT) Alkaline Phosphatase 73 U/L (45-117) Total Creatine Kinase 111 U/L (39-308) Creatine Kinase MB 4.4 NG/ML (0.5-3.6) Troponin I 0.04 NG/ML (0.02-0.05) Total Protein 7.0 GM/DL (6.4-8.2) Albumin 3.0 GM/DL (3.4-5.0) Blood Gas Puncture Site RT RADIAL RT FEMORAL Blood Gas Patient Temperature 98.6 98.6 Blood Gas HCO3 35 mmol/L 34 mmol/L (22-26) (22-26) Blood Gas Base Excess 7.1 mmol/L 6.3 mmol/L (-2-2) (-2-2) Blood Gas Oxygen Saturation 92 % (90-100) 95 % (90-100) Arterial Blood pH 7.21 7.20 (7.380-7.420) (7.380-7.420) Arterial Blood Partial 90 mmHg (38-42) 90 mmHg (38-42) Pressure CO2 Arterial Blood Partial 87 mmHG 96 mmHG Pressure O2 (61-120) (61-120) Arterial Blood Oxygen Content 14.5 Vol % 15.7 Vol % (12.0-20.0) (12.0-20.0) Arterial Blood 1.6 % (0-4) 1.2 % (0-4) Carboxyhemoglobin Arterial Blood Methemoglobin 0.5 % (0-2) 0.1 % (0-2) Blood Gas Hemoglobin 11.2 G/DL 11.7 G/DL (12.0-16.0) (12.0-16.0) Oxygen Delivery Device NRB MASK BIPAP Blood Gas Liter Flow 15 L/M Blood Gas Inspired Oxygen 100 % 75 % Urine Color YELLOW (YELLW/STRAW) Urine Turbidity HAZY (CLEAR) Urine pH 5.0 (5.0-8.5) Urine Specific [place] 1.017 (1.002-1.035) Urine Protein 30 mg/dL (NEG-TRACE) Urine Glucose (UA) NEG mg/dL (NEG) Urine Ketones NEG mg/dL (NEG) Urine Occult Blood NEG (NEG) Urine Nitrite NEG (NEG) Urine Bilirubin NEG (NEG) Urine Urobilinogen LESS THAN 2.0 MG/DL (LESS THAN 2.0) Urine Leukocyte Esterase NEG (NEG) Urine RBC 1 /hpf (0-3) Urine WBC 1 /hpf (0-5) Urine Squamous Epithelial <1 /hpf (0-5) Cells Urine Hyaline Casts 16 /lpf (RARE) Urine Mucus FEW /lpf (OCC) Microscopic Urinalysis Comment CULT NOT INDICATED Blood Gas Ventilator Setting IPAP=15 EPAP=8 R=18 Test 07/14/16 07/15/16 07/15/16 07/16/16 23:55 03:47 06:17 04:17 Nasal Screen MRSA (PCR) MRSA NOT DETECTED (NOT DETECT) Prothrombin Time 76.9 SEC (9.8-11.6) Prothromb Time International 6.4 RATIO Ratio Sodium Level 143 MEQ/L 145 MEQ/L (136-145) (136-145) Potassium Level 4.9 MEQ/L 3.7 MEQ/L (3.5-5.1) (3.5-5.1) Chloride Level 98 MEQ/L 100 MEQ/L (98-107) (98-107) Carbon Dioxide Level 40.0 MEQ/L 38.4 MEQ/L (21.0-32.0) (21.0-32.0) Anion Gap 5 MEQ/L (5-15) 7 MEQ/L (5-15) Blood Urea Nitrogen 78 MG/DL (7-18) 63 MG/DL (7-18) Creatinine 1.57 MG/DL 1.26 MG/DL (0.60-1.30) (0.60-1.30) Estimat Glomerular Filtration 42 ML/MIN (>89) 54 ML/MIN (>89) Rate Random Glucose 93 MG/DL 78 MG/DL (74-106) (74-106) Calcium Level 8.8 MG/DL 8.6 MG/DL (8.5-10.1) (8.5-10.1) Phosphorus Level 4.7 MG/DL 3.5 MG/DL (2.5-4.9) (2.5-4.9) Magnesium Level 2.8 MG/DL 3.0 MG/DL (1.5-2.5) (1.5-2.5) Blood Gas Puncture Site LT BRACHIAL Blood Gas Patient Temperature 98.6 Blood Gas HCO3 36 mmol/L (22-26) Blood Gas Base Excess 10.5 mmol/L (-2-2) Blood Gas Oxygen Saturation 92 % (90-100) Arterial Blood pH 7.36 (7.380-7.420) Arterial Blood Partial 67 mmHg (38-42) Pressure CO2 Arterial Blood Partial 77 mmHg Pressure O2 (61-120) Arterial Blood Oxygen Content 13.3 Vol % (12.0-20.0) Arterial Blood 1.9 % (0-4) Carboxyhemoglobin Arterial Blood Methemoglobin 0.9 % (0-2) Blood Gas Hemoglobin 10.2 G/DL (12.0-16.0) Oxygen Delivery Device BiPAP Blood Gas Ventilator Setting 17IPAP/8EPAP Blood Gas Inspired Oxygen 100 % Test 07/16/16 07/16/16 07/16/16 05:09 12:10 12:25 Blood Gas Puncture Site RT RADIAL LT RADIAL Blood Gas Patient Temperature 98.6 98.6 Blood Gas HCO3 36 mmol/L 35 mmol/L (22-26) (22-26) Blood Gas Base Excess 9.0 mmol/L 8.3 mmol/L (-2-2) (-2-2) Blood Gas Oxygen Saturation 95 % (90-100) 90 % (90-100) Arterial Blood pH 7.29 7.26 (7.380-7.420) (7.380-7.420) Arterial Blood Partial 76 mmHg (38-42) 82 mmHg (38-42) Pressure CO2 Arterial Blood Partial 102 mmHg 75 mmHg Pressure O2 (61-120) (61-120) Arterial Blood Oxygen Content 13.6 Vol % 13.6 Vol % (12.0-20.0) (12.0-20.0) Arterial Blood 1.6 % (0-4) 1.6 % (0-4) Carboxyhemoglobin Arterial Blood Methemoglobin 0.8 % (0-2) 1.0 % (0-2) Blood Gas Hemoglobin 10.1 G/DL 10.7 G/DL (12.0-16.0) (12.0-16.0) Oxygen Delivery Device BiPAP PRB MASK Blood Gas Ventilator Setting IPAP15/ EPAP6 Blood Gas Inspired Oxygen 80 % White Blood Count 10.6 TH/MM3 (4.0-11.0) Red Blood Count 3.49 MIL/MM3 (4.50-5.90) Hemoglobin 10.8 GM/DL (13.0-17.0) Hematocrit 33.7 % (39.0-51.0) Mean Corpuscular Volume 96.5 FL (80.0-100.0) Mean Corpuscular Hemoglobin 31.0 PG (27.0-34.0) Mean Corpuscular Hemoglobin 32.2 % Concent (32.0-36.0) Red Cell Distribution Width 15.6 % (11.6-17.2) Platelet Count 249 TH/MM3 (150-450) Mean Platelet Volume 7.7 FL (7.0-11.0) Neutrophils (%) (Auto) 87.7 % (16.0-70.0) Lymphocytes (%) (Auto) 6.4 % (9.0-44.0) Monocytes (%) (Auto) 5.8 % (0.0-8.0) Eosinophils (%) (Auto) 0.0 % (0.0-4.0) Basophils (%) (Auto) 0.1 % (0.0-2.0) Neutrophils # (Auto) 9.3 TH/MM3 (1.8-7.7) Lymphocytes # (Auto) 0.7 TH/MM3 (1.0-4.8) Monocytes # (Auto) 0.6 TH/MM3 (0-0.9) Eosinophils # (Auto) 0.0 TH/MM3 (0-0.4) Basophils # (Auto) 0.0 TH/MM3 (0-0.2) CBC Comment DIFF FINAL Differential Comment Prothrombin Time 106.4 SEC (9.8-11.6) Prothromb Time International 8.8 RATIO Ratio Result Diagram: 5/1/17 1225 07/16/16 0417 Microbiology Microbiology Date/Time Procedure Status Source Growth 07/14/16 16:20 Aerobic Blood Culture - Preliminary Resulted Blood Peripheral NO GROWTH IN 2 DAYS 07/14/16 16:20 Anaerobic Blood Culture - Preliminary Resulted Blood Peripheral NO GROWTH IN 2 DAYS 07/14/16 16:30 Aerobic Blood Culture - Preliminary Resulted Blood Peripheral NO GROWTH IN 2 DAYS 07/14/16 16:30 Anaerobic Blood Culture - Preliminary Resulted Blood Peripheral NO GROWTH IN 2 DAYS 07/14/16 19:25 Influenza Types A,B Antigen (MALENA) - Final Complete Nasal Washing NEGATIVE FOR FLU A AND B ANTIGEN.... Imaging Last Impressions Chest X-Ray 07/16/16 0000 Signed Impressions: Service Date/Time: Saturday, July 16, 2016 09:37 - CONCLUSION: Developing CHF Waldo Mitchell MD Abdomen X-Ray 07/14/16 0000 Signed Impressions: Service Date/Time: Thursday, July 14, 2016 15:42 - CONCLUSION: No definite free air is identified for technique. K. Jeffrey Allen MD Procedures BiPAP . Patient/Family Conference Present at Family Conference: Nory Toscano via telephone . Family Conference Time (mins): 25 Family Conference Location: Telephone Issues Discussed: * Palliative care role, purpose, approach * Hospice care role, purpose, approach * Additional medical, psychosocial, and spiritual history * Patients general health, functional status, and cognitive changes in the months leading up to the current hospitalization * Patient/family understanding of the current medical problems * Patient/family understanding of prognosis * Patients goals of care as best understood from advance directives and/or conversations and/or values * Current medical treatment options and benefits/burdens of those options * Likely scenarios comparing ongoing aggressive care with a transition to comfort measures only * Questions answered to the best of my ability * Palliative care contact information provided The patient wants to transition to comfort care, and his HCS daughter supports that decision, requesting a hospice consultation and likely transfer to a hospice care center tomorrow if the patient survives. . 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 Spiritual: Spirituality is important for him, and he is supported by the [facility]. Legal: At the time I'm present on 07/16/16, the patient has capacity for decision- making, but that has been intermittent throughout the day today, depending on how hypercapnic he is. His daughter Dorcas is the designated health care surrogate. Ethical issues impacting care: . Important Contacts Daughter: Dorcas Samaniego (a nurse working with a hospice organization in [place]) Cell phone [phone] . Prognosis This patient's prognosis is quite poor, and I suspect he has just hours or days to live. . Code Status: No Code Plan * DO NOT RESUSCITATE, confirmed with the patient and HCS daughter 07/16/16 * DECISION-MAKING: At the time I'm present on 07/16/16, the patient has capacity for decision-making, but that has been intermittent throughout the day today, depending on how hypercapnic he is. His daughter Dorcas is the designated health care surrogate. * GOALS: The patient wants to transition to comfort care, and his HCS daughter supports that decision, requesting a hospice consultation and likely transfer to a hospice care center tomorrow if the patient survives. * SYMPTOMS: The patient and his HCS daughter have requested transitioning toward comfort care. I have written orders for morphine, lorazepam, Levsin, and Dr. Reyes has previously written for Precedex. * Hospice consult placed; the tentative plan is for the HCS daughter Dorcas to fly down tonight, and anticipate a possible transfer to a hospice care center tomorrow. * Palliative Care will continue to follow the patient during this hospitalization. . Time Spent Total Floor Time (mins): 78 Face to Face Time (mins): 22 >50% Counseling/Coord of Care: Yes (d/w Dr. Reyes and with RN) Thank you for the opportunity to participate in the care of Mr. Barrientos. Attestation To help prompt me to consider important information that might be impacting today's encounter and assessment, information from prior notes written by myself or my colleagues may have been "brought forward" into today's note. My signature on this note, however, is an attestation that I personally performed the exam, history, and/or decision-making noted today, and, unless otherwise indicated, the interactions with patient, family, and staff as well as the review of records all occurred today. I also attest that the listed assessment and stated plan reflect my best clinical judgment today based on the combination of historical information, prior notes, and today's exam/ interactions. When time spent is documented, it refers only to time spent today by the signer, or if indicated, combined time spent today by collaborating physician/nurse practitioner. Awilda San MD July 16, 2016 17:34
--- NOTE | 2016-07-16 20:04 | EC ---
Study Study Date:07/16/2016 STUDY CONCLUSIONS SUMMARY - Left ventricle: The cavity size was mildly dilated. Wall thickness was normal. Systolic function was normal. The estimated ejection fraction was 55%. Wall motion was normal; there were no regional wall motion abnormalities. - Aortic valve: Calcified annulus. Trileaflet; moderately thickened, moderately calcified leaflets. Transvalvular velocity was increased. 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 Mean gradient: 35mm Hg (S). Peak gradient: 72mm Hg (S). Valve area: 0.83cm^2(VTI). Valve area: 0.99cm^2 (Vmax). - Mitral valve: Calcified annulus. Moderate regurgitation. - Left atrium: The atrium was moderately dilated. - Right atrium: The atrium was massively dilated. - Tricuspid valve: Severe regurgitation. - Pulmonary arteries: Systolic pressure was moderately increased, estimated to be 54mm Hg. If LV function is below 40, please consider prescribing an ACEI or ARB or document rationale for non-use. PROCEDURE DATA STUDY STATUS: Elective. Procedure: Transthoracic echocardiography. Image quality was good. Scanning was performed from the parasternal, apical, and subcostal acoustic windows. Study completion: The patient tolerated the procedure well. Transthoracic echocardiography. M-mode, complete 2D, complete spectral Doppler, and color Doppler. Height: Height: 70in. Weight: Weight: 159.7lb. Body mass index: BMI: 23kg/m^2. Body surface area: BSA: 1.9m^2. Patient status: Inpatient. CARDIAC ANATOMY LEFT VENTRICLE: The cavity size was mildly dilated. Wall thickness was normal. Systolic function was normal. The estimated ejection fraction was 55%. Wall motion was normal; there were no regional wall motion abnormalities. AORTIC VALVE: Calcified annulus. Trileaflet; moderately thickened, moderately calcified leaflets. Doppler: Transvalvular velocity was increased. 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 No regurgitation. Valve area: 0.83cm^2(VTI). Indexed valve area: 0.44cm^2/m^2 (VTI). Valve area: 0.99cm^2 (Vmax). Indexed valve area: 0.52cm^2/m^2 (Vmax). Mean gradient: 35mm Hg (S). Peak gradient: 72mm Hg (S). AORTA: Aortic root: The aortic root was normal in size. MITRAL VALVE: Calcified annulus. Doppler: Transvalvular velocity was within the normal range. There was no evidence for stenosis. Moderate regurgitation. Valve area by pressure half-time: 4cm^2. Indexed valve area by pressure half-time: 2.11cm^2/m^2. LEFT ATRIUM: The atrium was moderately dilated. RIGHT VENTRICLE: The cavity size was normal. Wall thickness was normal. PULMONIC VALVE: Doppler: Transvalvular velocity was within the normal range. There was no evidence for stenosis. No regurgitation. TRICUSPID VALVE: Mildly thickened leaflets. Doppler: Transvalvular velocity was within the normal range. Severe regurgitation. Peak gradient: 54mm Hg (D). PULMONARY ARTERY: The main pulmonary artery was normal-sized. Systolic pressure was moderately increased, estimated to be 54mm Hg. RIGHT ATRIUM: The atrium was massively dilated. PERICARDIUM: There was no pericardial effusion. SYSTEMIC VEINS: Inferior vena cava: The vessel was normal in size. Patient weight: 159.7lb _Ejection fraction:_ 65-75% _Fractional shortening:_ 32% up to 5Kg 5-11.5Kg 11.6-22.9Kg 23-45Kg 45-57Kg Aortic Root 7-13 <17 13-22 17-27 17-27 LA diam 6-13 <23 24-38 33-47 37-40 RVID 10-17 7-15 7-15 7-18 8-17 LVIDd 12-22 <32 24-38 33-47 37-40 LVPW 2-4 3-6 5-7 6-8 7-8 IVS 2-4 3-6 5-7 6-8 7-8 BASIC MEASUREMENTS ADULT NORMAL Left ventricle LV internal dimension, ED, chordal *54.7 mm 43-52 level, PLAX LV internal dimension, ES, chordal *42.2 mm 23-38 level, PLAX Fractional shortening, chordal level, *23 % >29 PLAX LV posterior wall thickness, ED 9.93 mm IVS/LVPW ratio, ED 1.05 <1.3 Ventricular septum Septal thickness, ED 10.4 mm Aortic valve Leaflet separation *11 mm 15-26 Left atrium Anterior-posterior dimension 57 mm Anterior-posterior dimension index *3 cm/m^2 <2.2 BASIC MEASUREMENTS ADULT NORMAL Aortic valve Leaflet separation *11 mm 15-26 Aorta Root diameter, ED 32 mm 20-37 DOPPLER MEASUREMENTS ADULT NORMAL Aortic valve Peak velocity, S 423 cm/s Mean velocity, S 267 cm/s VTI, S 69.8 cm Mean gradient, S 35 mm Hg Peak gradient, S 72 mm Hg Valve area, VTI 0.83 cm^2 Valve area index, VTI 0.44 cm^2/m^2 Valve area, Vmax 0.99 cm^2 Valve area index, Vmax 0.52 cm^2/m^2 Mitral valve Pressure half-time 55 ms Valve area, pressure half-time 4 cm^2 Valve area index, pressure half-time 2.11 cm^2/m^2 Tricuspid valve Peak gradient, D 54 mm Hg Maximal inflow velocity 368 cm/s Pulmonic valve Peak velocity, S 156 cm/s Acceleration time 472 ms LEGEND: Mean values are shown as u=mean value. Asterisk (*) woody values outside specified normal range. Prepared and signed by Gonzalez Dale [id number]
[2016-07-16] MEDS: RESP: ALBUTEROL 2.5 MG/IPRATROPIUM 0.5 MG NEB (SCH) NEB (23:40)
[2016-07-17] VITALS (8 sets, daily range): BP systolic 81–91; BP diastolic 50–54; PULSE 88–101; RESP 24–25; TEMP 98.3–98.8; O2SAT 74–84
[2016-07-17] MEDS: DEXMEDETOMIDINE INJ 200 MCG in SODIUM CHLORIDE 0.9% INJ 50 ML IV SCH (01:30)
[2016-07-17] MEDS: CHLORHEXIDINE GLUCONATE 2 % 1 PACK (2 CLOTHS) TOP SCH (04:00)
[2016-07-17] MEDS: TOBRAMYCIN SULF 0.3% OPHT SOLN 5 ML BTL EACH EYE SCH ×2 (05:20)
[2016-07-17] MEDS: MORPHINE SULFATE 4 MG/ML INJ IV PUSH PRN ×2 (05:20→08:29)
[2016-07-17] MEDS: RESP: ALBUTEROL 2.5 MG/IPRATROPIUM 0.5 MG NEB (SCH) NEB (08:00)
[2016-07-17] MEDS: methylPREDNISolone SOD SUCC 40 MG/1 ML VIAL IV PUSH SCH (08:28)
[2016-07-17] MEDS: METOPROLOL SUCCINATE 50 MG EXTENDED RELEASE TAB PO SCH (08:37)
[2016-07-17] MEDS: DOCUSATE SODIUM 100 MG CAP PO SCH (08:37)
[2016-07-17] MEDS: FUROSEMIDE 40 MG TAB PO SCH (08:37)
[2016-07-17] MEDS: PANTOPRAZOLE SOD 40 MG DELAYED RELEASE TAB PO SCH (08:37)
[2016-07-17] MEDS: DILTIAZEM-CD 180 MG CAP ER PO SCH (08:37)
--- NOTE | 2016-07-17 12:32 | HHI.HCPN ---
Reason for visit a. To assist with evaluation and management of symptoms including: Shortness of breath b. To assist medical decision maker(s) with: better understanding of current medical conditions; weighing benefits/burdens of medical treatment options; making medical treatment decisions. . Subjective/Interval History INTERVAL NOTE: The patient required comfort medicines during the night and this morning, including 3 PRN doses of morphine. He has continued to decline, has very shallow respirations, and appears imminent. He has been afebrile, and his oxygen saturations have been decreasing today, now down in the 70s. 3 daughters are present, and the fourth is on her way. See below. . Family/friend interactions 3 daughters are at the bedside, and confirmed that the entire family is in agreement with transition to comfort care and hospice services. They understand that the patient is imminent and likely will today or tomorrow. . Advance Directives Living Will: Completed, but not made available Health Care Surrogate: Completed, but not made available Durable Power of Buckle Strap Puncher: Completed, but not made available Advance Directive Specifics Health Care Surrogate(s): Daughter Dorcas Samaniego . Documented care wishes: The patient has a living will that confirms that he will not want to have his life prolonging when he has an end-stage or terminal condition. . Objective Vital Signs Date Time Temp Pulse Resp B/P Pulse Ox O2 Delivery O2 Flow Rate FiO2 07/17/16 10:00 100 07/17/16 08:34 24 07/17/16 08:00 88 07/17/16 08:00 98.3 88 24 91/51 74 07/17/16 07:00 80 Non-Rebreather 15.00 07/17/16 06:00 101 07/17/16 04:00 98.7 94 25 81/54 83 07/17/16 04:00 94 07/17/16 02:00 98 07/17/16 00:00 98.8 93 24 85/50 84 07/17/16 00:00 93 07/16/16 22:00 105 07/16/16 20:54 91 15.00 07/16/16 20:00 98.8 105 28 100/52 91 07/16/16 20:00 105 07/16/16 19:00 85 Non-Rebreather 15.00 07/16/16 18:00 135 07/16/16 16:00 98.8 141 43 127/60 83 07/16/16 16:00 141 07/16/16 15:45 84 100 07/16/16 14:00 138 Intake & Output 07/17/16 07/17/16 07:00 19:00 Intake Total 930 ml Output Total 200 ml Balance 730 ml IV Total 930 ml Output Urine Total 200 ml Physical Exam CONSTITUTIONAL/GENERAL: This is a frail, somewhat cachectic patient, in no apparent distress. TUBES/LINES/DRAINS: Nonrebreather, Bernal, IVs NECK: Trachea midline. Supple, nontender. No palpable thyroid enlargement or nodularity. CARDIOVASCULAR: Irregular rhythm. At 45 in his bed, he has marked JVD. Pulses not palpable in the ankles/feet. RESPIRATORY/CHEST: Symmetric, mildly labored respirations. Scattered rales and rhonchi GASTROINTESTINAL: Abdomen soft, non-tender, but moderately distended with ascites. No hepato-splenomegaly, or palpable masses. No guarding. Bowel sounds present. GENITOURINARY: Without palpable bladder distension. Bernal catheter in place. MUSCULOSKELETAL: Extremities without clubbing, cyanosis, or edema. No joint tenderness or effusion noted. No calf tenderness. No mottling or clubbing. LYMPHATICS: No palpable cervical or supraclavicular adenopathy. NEUROLOGICAL: Lethargic, does not arouse PSYCHIATRIC: Unable to evaluate due to her clinical condition . Diagnostic Tests Laboratory Laboratory Tests Test 07/14/16 07/14/16 07/14/16 07/14/16 15:40 15:43 16:30 19:40 White Blood Count 5.8 TH/MM3 (4.0-11.0) Red Blood Count 3.58 MIL/MM3 (4.50-5.90) Hemoglobin 11.2 GM/DL (13.0-17.0) Hematocrit 34.0 % (39.0-51.0) Mean Corpuscular Volume 95.0 FL (80.0-100.0) Mean Corpuscular Hemoglobin 31.2 PG (27.0-34.0) Mean Corpuscular Hemoglobin 32.8 % Concent (32.0-36.0) Red Cell Distribution Width 15.2 % (11.6-17.2) Platelet Count 295 TH/MM3 (150-450) Mean Platelet Volume 8.2 FL (7.0-11.0) Neutrophils (%) (Auto) 60.2 % (16.0-70.0) Lymphocytes (%) (Auto) 17.7 % (9.0-44.0) Monocytes (%) (Auto) 21.9 % (0.0-8.0) Eosinophils (%) (Auto) 0.0 % (0.0-4.0) Basophils (%) (Auto) 0.2 % (0.0-2.0) Neutrophils # (Auto) 3.5 TH/MM3 (1.8-7.7) Lymphocytes # (Auto) 1.0 TH/MM3 (1.0-4.8) Monocytes # (Auto) 1.3 TH/MM3 (0-0.9) Eosinophils # (Auto) 0.0 TH/MM3 (0-0.4) Basophils # (Auto) 0.0 TH/MM3 (0-0.2) CBC Comment DIFF FINAL Differential Comment Sodium Level 140 MEQ/L (136-145) Potassium Level 4.8 MEQ/L (3.5-5.1) Chloride Level 97 MEQ/L (98-107) Carbon Dioxide Level 36.1 MEQ/L (21.0-32.0) Anion Gap 7 MEQ/L (5-15) Blood Urea Nitrogen 80 MG/DL (7-18) Creatinine 1.69 MG/DL (0.60-1.30) Estimat Glomerular Filtration 39 ML/MIN (>89) Rate Random Glucose 137 MG/DL (74-106) Lactic Acid Level 1.5 mmol/L (0.4-2.0) Calcium Level 9.0 MG/DL (8.5-10.1) Total Bilirubin 0.6 MG/DL (0.2-1.0) Aspartate Amino Transf 38 U/L (15-37) (AST/SGOT) Alanine Aminotransferase 19 U/L (12-78) (ALT/SGPT) Alkaline Phosphatase 73 U/L (45-117) Total Creatine Kinase 111 U/L (39-308) Creatine Kinase MB 4.4 NG/ML (0.5-3.6) Troponin I 0.04 NG/ML (0.02-0.05) Total Protein 7.0 GM/DL (6.4-8.2) Albumin 3.0 GM/DL (3.4-5.0) Blood Gas Puncture Site RT RADIAL RT FEMORAL Blood Gas Patient Temperature 98.6 98.6 Blood Gas HCO3 35 mmol/L 34 mmol/L (22-26) (22-26) Blood Gas Base Excess 7.1 mmol/L 6.3 mmol/L (-2-2) (-2-2) Blood Gas Oxygen Saturation 92 % (90-100) 95 % (90-100) Arterial Blood pH 7.21 7.20 (7.380-7.420) (7.380-7.420) Arterial Blood Partial 90 mmHg (38-42) 90 mmHg (38-42) Pressure CO2 Arterial Blood Partial 87 mmHG 96 mmHG Pressure O2 (61-120) (61-120) Arterial Blood Oxygen Content 14.5 Vol % 15.7 Vol % (12.0-20.0) (12.0-20.0) Arterial Blood 1.6 % (0-4) 1.2 % (0-4) Carboxyhemoglobin Arterial Blood Methemoglobin 0.5 % (0-2) 0.1 % (0-2) Blood Gas Hemoglobin 11.2 G/DL 11.7 G/DL (12.0-16.0) (12.0-16.0) Oxygen Delivery Device NRB MASK BIPAP Blood Gas Liter Flow 15 L/M Blood Gas Inspired Oxygen 100 % 75 % Urine Color YELLOW (YELLW/STRAW) Urine Turbidity HAZY (CLEAR) Urine pH 5.0 (5.0-8.5) Urine Specific [place] 1.017 (1.002-1.035) Urine Protein 30 mg/dL (NEG-TRACE) Urine Glucose (UA) NEG mg/dL (NEG) Urine Ketones NEG mg/dL (NEG) Urine Occult Blood NEG (NEG) Urine Nitrite NEG (NEG) Urine Bilirubin NEG (NEG) Urine Urobilinogen LESS THAN 2.0 MG/DL (LESS THAN 2.0) Urine Leukocyte Esterase NEG (NEG) Urine RBC 1 /hpf (0-3) Urine WBC 1 /hpf (0-5) Urine Squamous Epithelial <1 /hpf (0-5) Cells Urine Hyaline Casts 16 /lpf (RARE) Urine Mucus FEW /lpf (OCC) Microscopic Urinalysis Comment CULT NOT INDICATED Blood Gas Ventilator Setting IPAP=15 EPAP=8 R=18 Test 07/14/16 07/15/16 07/15/16 07/16/16 23:55 03:47 06:17 04:17 Nasal Screen MRSA (PCR) MRSA NOT DETECTED (NOT DETECT) Prothrombin Time 76.9 SEC (9.8-11.6) Prothromb Time International 6.4 RATIO Ratio Sodium Level 143 MEQ/L 145 MEQ/L (136-145) (136-145) Potassium Level 4.9 MEQ/L 3.7 MEQ/L (3.5-5.1) (3.5-5.1) Chloride Level 98 MEQ/L 100 MEQ/L (98-107) (98-107) Carbon Dioxide Level 40.0 MEQ/L 38.4 MEQ/L (21.0-32.0) (21.0-32.0) Anion Gap 5 MEQ/L (5-15) 7 MEQ/L (5-15) Blood Urea Nitrogen 78 MG/DL (7-18) 63 MG/DL (7-18) Creatinine 1.57 MG/DL 1.26 MG/DL (0.60-1.30) (0.60-1.30) Estimat Glomerular Filtration 42 ML/MIN (>89) 54 ML/MIN (>89) Rate Random Glucose 93 MG/DL 78 MG/DL (74-106) (74-106) Calcium Level 8.8 MG/DL 8.6 MG/DL (8.5-10.1) (8.5-10.1) Phosphorus Level 4.7 MG/DL 3.5 MG/DL (2.5-4.9) (2.5-4.9) Magnesium Level 2.8 MG/DL 3.0 MG/DL (1.5-2.5) (1.5-2.5) Blood Gas Puncture Site LT BRACHIAL Blood Gas Patient Temperature 98.6 Blood Gas HCO3 36 mmol/L (22-26) Blood Gas Base Excess 10.5 mmol/L (-2-2) Blood Gas Oxygen Saturation 92 % (90-100) Arterial Blood pH 7.36 (7.380-7.420) Arterial Blood Partial 67 mmHg (38-42) Pressure CO2 Arterial Blood Partial 77 mmHg Pressure O2 (61-120) Arterial Blood Oxygen Content 13.3 Vol % (12.0-20.0) Arterial Blood 1.9 % (0-4) Carboxyhemoglobin Arterial Blood Methemoglobin 0.9 % (0-2) Blood Gas Hemoglobin 10.2 G/DL (12.0-16.0) Oxygen Delivery Device BiPAP Blood Gas Ventilator Setting 17IPAP/8EPAP Blood Gas Inspired Oxygen 100 % Test 07/16/16 07/16/16 07/16/16 05:09 12:10 12:25 Blood Gas Puncture Site RT RADIAL LT RADIAL Blood Gas Patient Temperature 98.6 98.6 Blood Gas HCO3 36 mmol/L 35 mmol/L (22-26) (22-26) Blood Gas Base Excess 9.0 mmol/L 8.3 mmol/L (-2-2) (-2-2) Blood Gas Oxygen Saturation 95 % (90-100) 90 % (90-100) Arterial Blood pH 7.29 7.26 (7.380-7.420) (7.380-7.420) Arterial Blood Partial 76 mmHg (38-42) 82 mmHg (38-42) Pressure CO2 Arterial Blood Partial 102 mmHg 75 mmHg Pressure O2 (61-120) (61-120) Arterial Blood Oxygen Content 13.6 Vol % 13.6 Vol % (12.0-20.0) (12.0-20.0) Arterial Blood 1.6 % (0-4) 1.6 % (0-4) Carboxyhemoglobin Arterial Blood Methemoglobin 0.8 % (0-2) 1.0 % (0-2) Blood Gas Hemoglobin 10.1 G/DL 10.7 G/DL (12.0-16.0) (12.0-16.0) Oxygen Delivery Device BiPAP PRB MASK Blood Gas Ventilator Setting IPAP15/ EPAP6 Blood Gas Inspired Oxygen 80 % White Blood Count 10.6 TH/MM3 (4.0-11.0) Red Blood Count 3.49 MIL/MM3 (4.50-5.90) Hemoglobin 10.8 GM/DL (13.0-17.0) Hematocrit 33.7 % (39.0-51.0) Mean Corpuscular Volume 96.5 FL (80.0-100.0) Mean Corpuscular Hemoglobin 31.0 PG (27.0-34.0) Mean Corpuscular Hemoglobin 32.2 % Concent (32.0-36.0) Red Cell Distribution Width 15.6 % (11.6-17.2) Platelet Count 249 TH/MM3 (150-450) Mean Platelet Volume 7.7 FL (7.0-11.0) Neutrophils (%) (Auto) 87.7 % (16.0-70.0) Lymphocytes (%) (Auto) 6.4 % (9.0-44.0) Monocytes (%) (Auto) 5.8 % (0.0-8.0) Eosinophils (%) (Auto) 0.0 % (0.0-4.0) Basophils (%) (Auto) 0.1 % (0.0-2.0) Neutrophils # (Auto) 9.3 TH/MM3 (1.8-7.7) Lymphocytes # (Auto) 0.7 TH/MM3 (1.0-4.8) Monocytes # (Auto) 0.6 TH/MM3 (0-0.9) Eosinophils # (Auto) 0.0 TH/MM3 (0-0.4) Basophils # (Auto) 0.0 TH/MM3 (0-0.2) CBC Comment DIFF FINAL Differential Comment Prothrombin Time 106.4 SEC (9.8-11.6) Prothromb Time International 8.8 RATIO Ratio Result Diagram: 07/16/16 1225 07/16/16 0417 Microbiology Microbiology Date/Time Procedure Status Source Growth 07/14/16 16:20 Aerobic Blood Culture - Preliminary Resulted Blood Peripheral NO GROWTH IN 3 DAYS 07/14/16 16:20 Anaerobic Blood Culture - Preliminary Resulted Blood Peripheral NO GROWTH IN 3 DAYS 07/14/16 16:30 Aerobic Blood Culture - Preliminary Resulted Blood Peripheral NO GROWTH IN 3 DAYS 07/14/16 16:30 Anaerobic Blood Culture - Preliminary Resulted Blood Peripheral NO GROWTH IN 3 DAYS 07/14/16 19:25 Influenza Types A,B Antigen (MALENA) - Final Complete Nasal Washing NEGATIVE FOR FLU A AND B ANTIGEN.... Imaging Last Impressions Chest X-Ray 07/16/16 0000 Signed Impressions: Service Date/Time: Saturday, July 16, 2016 09:37 - CONCLUSION: Developing CHF Waldo Mitchell MD Abdomen X-Ray 07/14/16 0000 Signed Impressions: Service Date/Time: Thursday, July 14, 2016 15:42 - CONCLUSION: No definite free air is identified for technique. K. Jeffrey Allen MD Procedures BiPAP . 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 Spiritual: Spirituality is important for him, and he is supported by the [facility]. Legal: At the time I'm present on 07/16/16, the patient has capacity for decision- making, but that has been intermittent throughout the day today, depending on how hypercapnic he is. His daughter Dorcas is the designated health care surrogate. Ethical issues impacting care: . Important Contacts Daughter: Dorcas Samaniego (a nurse working with a hospice organization in [place]) Cell phone [phone] . Prognosis This patient's prognosis is quite poor, and I suspect he has just hours or days to live. . Code Status: No Code Plan * DO NOT RESUSCITATE, confirmed with the patient and HCS daughter 07/16/16 * DECISION-MAKING: The patient's daughter Cate is HCS * GOALS: Focus on comfort, transition to hospice services today. * SYMPTOMS: Comfort medicines provided, orders written for hospice * Palliative Care will continue to follow the patient during this hospitalization. . Time Spent Total Floor Time (mins): 39 Face to Face Time (mins): 11 >50% Counseling/Coord of Care: Yes (d/w Dr. Reyes and w RN) Attestation To help prompt me to consider important information that might be impacting today's encounter and assessment, information from prior notes written by myself or my colleagues may have been "brought forward" into today's note. My signature on this note, however, is an attestation that I personally performed the exam, history, and/or decision-making noted today, and, unless otherwise indicated, the interactions with patient, family, and staff as well as the review of records all occurred today. I also attest that the listed assessment and stated plan reflect my best clinical judgment today based on the combination of historical information, prior notes, and today's exam/ interactions. When time spent is documented, it refers only to time spent today by the signer, or if indicated, combined time spent today by collaborating physician/nurse practitioner. Awilda San MD July 17, 2016 12:32
--- NOTE | 2016-07-17 16:23 | HHI.DS ---
Discharge Summary Admission Date Jul 14, 2016 at 17:35 Admitting Diagnosis AMS; HYPOXIA; HYPERCARBIA; OLU; UREMIA; ACIDOSIS (1) right ventricular failure (2) atrial fibrillation with RVR, on Coumadin (3) tricuspid regurgitation (4) anxiety (5) dyspnea (6) ascites, worsening since January 2016 (7) pulmonary hypertension, suspected interstitial lung disease (8) history of hypertension (9) Hypercapnic respiratory failure ICD Code: J96.92 (10) OLU (acute kidney injury) ICD Code: N17.9 (11) Hypoxia ICD Code: R09.02 (12) Acidosis ICD Code: E87.2 (13) respiratory failure, hypercapnia (14) Altered mental status ICD Code: R41.82 (15) hearing loss Brief History Patient presents to ED with gradual worsening of exercise tolerance and frequent falls. Brought in by EMS after he got confused, soiled himself, and appeared disoriented. Sats low 80s at scene and in ED. Placed on BiPAOP in ED with improvement. Chronic COPD with elevated bicarb 34. 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 He is chronically on lasix and metolazone. Permanent A-fib and coumadin. CBC/BMP: 07/16/16 1225 07/16/16 0417 Significant Findings Laboratory Tests Test 07/14/16 07/14/16 07/15/16 07/15/16 16:30 19:40 03:47 06:17 Urine Turbidity HAZY (CLEAR) Urine Protein 30 mg/dL (NEG-TRACE) Urine Mucus FEW /lpf (OCC) Blood Gas HCO3 34 mmol/L 36 mmol/L (22-26) (22-26) Blood Gas Base Excess 6.3 mmol/L 10.5 mmol/L (-2-2) (-2-2) Arterial Blood pH 7.20 7.36 (7.380-7.420) (7.380-7.420) Arterial Blood Partial 90 mmHg (38-42) 67 mmHg (38-42) Pressure CO2 Blood Gas Hemoglobin 11.7 G/DL 10.2 G/DL (12.0-16.0) (12.0-16.0) Prothrombin Time 76.9 SEC (9.8-11.6) Prothromb Time International 6.4 RATIO Ratio Carbon Dioxide Level 40.0 MEQ/L (21.0-32.0) Blood Urea Nitrogen 78 MG/DL (7-18) Creatinine 1.57 MG/DL (0.60-1.30) Estimat Glomerular Filtration 42 ML/MIN (>89) Rate Magnesium Level 2.8 MG/DL (1.5-2.5) Test 07/16/16 07/16/16 07/16/16 07/16/16 04:17 05:09 12:10 12:25 Carbon Dioxide Level 38.4 MEQ/L (21.0-32.0) Blood Urea Nitrogen 63 MG/DL (7-18) Estimat Glomerular Filtration 54 ML/MIN (>89) Rate Magnesium Level 3.0 MG/DL (1.5-2.5) Blood Gas HCO3 36 mmol/L 35 mmol/L (22-26) (22-26) Blood Gas Base Excess 9.0 mmol/L 8.3 mmol/L (-2-2) (-2-2) Arterial Blood pH 7.29 7.26 (7.380-7.420) (7.380-7.420) Arterial Blood Partial 76 mmHg (38-42) 82 mmHg (38-42) Pressure CO2 Blood Gas Hemoglobin 10.1 G/DL 10.7 G/DL (12.0-16.0) (12.0-16.0) Red Blood Count 3.49 MIL/MM3 (4.50-5.90) Hemoglobin 10.8 GM/DL (13.0-17.0) Hematocrit 33.7 % (39.0-51.0) Neutrophils (%) (Auto) 87.7 % (16.0-70.0) Lymphocytes (%) (Auto) 6.4 % (9.0-44.0) Neutrophils # (Auto) 9.3 TH/MM3 (1.8-7.7) Lymphocytes # (Auto) 0.7 TH/MM3 (1.0-4.8) Prothrombin Time 106.4 SEC (9.8-11.6) Prothromb Time International 8.8 RATIO Ratio Imaging Last Impressions Chest X-Ray 07/16/16 0000 Signed Impressions: Service Date/Time: Saturday, July 16, 2016 09:37 - CONCLUSION: Developing CHF Waldo Mitchell MD Abdomen X-Ray 07/14/16 0000 Signed Impressions: Service Date/Time: Thursday, July 14, 2016 15:42 - CONCLUSION: No definite free air is identified for technique. Rafa Allen MD PE at Discharge Gen: Elderly male laying in bed on O2 via facemask HEENT: Positive pallor, no icterus, tongue moist Lungs: Good air entry bilaterally, scattered rhonchi, no wheezing Heart: Irreg Irreg, no JVD. Abdomen: Soft, NT, ND, quiet. Extremities: Warm, lowers wrinkled. Neuro: Encephalopathic, minimally arousable. Appears comfortable Hospital Course 07/15: Patient presents to ED with gradual worsening of exercise tolerance and frequent falls. Brought in by EMS after he got confused, soiled himself, and appeared disoriented. Sats low 80s at scene and in ED. Placed on BiPAOP in ED with improvement. Chronic COPD with elevated bicarb 34. 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 He is chronically on lasix and metolazone. Permanent A-fib and coumadin. 07/16 : Was on BiPAP overnight. Placed on nonrebreather facemask this morning. He is awake and alert and conversant. He is worried about his was dementia since she takes care of her at home. He tells me that his daughter is taking care of her currently. Patient states that he follows up with Dr. Lopez from cardiology for his heart. Received 1 dose of Lopressor IV and digoxin 0.5 mg IV 1 dose yesterday for A. fib with RVR. Currently appears rate controlled. Consulted palliative care team to assist with deciding goals of therapy as patient appears to have extremely poor prognosis. Spoke with patient in the morning and he was extremely lucid and did not want intubation or CPR if his condition worsened and expressed his desire to be a DNR status. Subsequently he also expressed his wishes regarding staying off BiPAP. Discussed at length with 2 of patient's daughters and explained to them worsening clinical status including need for BiPAP once again and they both agreed with focusing more on comfort measures. Decision was made by family to transition to hospice care center if he survived the night. He was initiated on morphine/Ativan when necessary for anxiety/discomfort as well as Levsin as needed. BiPAP was taken off. 07/17: Patient appeared comfortable on supplemental O2. His daughter arrived from [place] and all 3 daughters were at the bedside today. Discussed with Dr. San who arrived to meet the family as well as evaluate patient. Hospice nurse evaluated patient as well and patient was subsequently discharged to [facility]. Family very appreciative regarding his care in the ICU. Pt Condition on Discharge: Deteriorating Discharge Disposition: Hospice/Med Facility Discharge Instructions DIET: Follow Instructions for: As Tolerated, No Restrictions Activities you can perform: Continue Bedrest Srinivasan Reyes MD July 17, 2016 16:23
== END 2016-07-17 12:30 | disposition hospice, inpatient (51) | DRG 306 ==
LOC: NEPE 15:22 → NEDA 17:35 → HIMW 23:50
PROVIDERS: ADMIT Emergency Medicine; ATTEND Emergency Medicine
PROC: 5A09357 Assistance with Respiratory Ventilation, Less than 24 Consecutive Hours, Continuous Positive Airway Pressure (ICD-10-PCS; principal; 2016-07-14)
DX: I07.1 Rheumatic tricuspid insufficiency (principal); J96.92 Respiratory failure, unspecified with hypercapnia; N17.9 Acute kidney failure, unspecified; E87.2 Acidosis; R18.8 Other ascites; I27.2 Other secondary pulmonary hypertension; I50.9 Heart failure, unspecified; I48.2 Chronic atrial fibrillation; Z79.01 Long term (current) use of anticoagulants; F41.9 Anxiety disorder, unspecified; I10 Essential (primary) hypertension; R09.02 Hypoxemia; H91.90 Unspecified hearing loss, unspecified ear; R29.6 Repeated falls; J44.9 Chronic obstructive pulmonary disease, unspecified; R41.82 Altered mental status, unspecified; Z66 Do not resuscitate; Z51.5 Encounter for palliative care; Z85.828 Personal history of other malignant neoplasm of skin; M19.90 Unspecified osteoarthritis, unspecified site; R79.89 Other specified abnormal findings of blood chemistry
CPT/HCPCS: 36600; 71010; 74000; 80048; 80053; 81001; 82550; 82552; 82805; 83605; 83735; 84100; 84484; 85025; 85610; 87040; 87641; 87804; 93005; 93306; 94002; 94003; 94640; 94664; J1120; J1160; J1940; J2270; J2920; J3430; J7030